=== PATIENT | male | born 1945 | race Caucasian/White ===

== ENCOUNTER → 2023-06-28 13:19 | Outpatient (REF) | payer OTHER, SELFPAY | LOC: DHCBC MAIN 13:19 | PROVIDERS: ATTENDING PHYSICIAN Internal Medicine Cardiovascular Disease; FAMILY PHYSICIAN Internal Medicine | DX: I10 Essential (primary) hypertension (principal); I48.21 Permanent atrial fibrillation; N18.4 Chronic kidney disease, stage 4 (severe); I42.8 Other cardiomyopathies; L03.116 Cellulitis of left lower limb; I35.0 Nonrheumatic aortic (valve) stenosis | CPT/HCPCS: 93306 ==

== ENCOUNTER 2023-09-04 15:46 | Inpatient (IN) | payer OTHER, SELFPAY ==
[2023-09-04 13:49] VITALS: BP 145/104
--- NOTE | 2023-09-04 14:29 | ED.MUSCINJ ---
HPI-Injury
General
Chief Complaint: Fall
Source: patient
Exam Limitations: none
Time Seen by Provider: 09/04/23 14:19
Nursing documentation reviewed up to this point in time: agreed with
History of Present Illness-Injury
Is this injury a work related problem?: No
Is pt an associate of [facility]?: No
Initial Injury comments:
Patient states he was trying to prevent salt shaker from falling and he fell out of his wheelchair. Denies hitting his head. COmplains of pain to left hip. Injury occurred just [employer]
Past History
Past History
ED Past Medical History: Arrthythmia (Atrial fib), CHF, CVA, HTN, Hypercholesterolemia, Renal failure (Dialysis T-Th- S), Seizures and Other (Difficulty with balance, Neuropathy, Paresthesia arms and legs, Sleep apnea, Diverticulosis Cellulitis,
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
ED Past Surgical History: Cardiac (Cardioversion X 2), Orthopedic (C2-C3 surgery, Left leg BKA), Tonsilectomy and Other (Cataracts extracted in 2011, ocular muscle detachment 2016, nasal polypectomy, deviated septum repair 1987, thyroid biopsy)
Patient has exhibited threatening behavior?: No
PSI?: No
Social History
Tobacco: Former smoker
Alcohol: None
Drug: None
Personal:
Living: with family
Employment: Retired
Family History
Family History: Other (reviewed and noncontributory)
Review of Systems
Review of Systems
Allergies reviewed?: Yes
All Other Systems: ROS reviewed and negative except as documented in HPI and ROS
Constitutional: Reports no symptoms
EENT: Reports no symptoms
Respiratory: Reports no symptoms
Cardiac: Reports no symptoms
ABD/GI: Reports no symptoms
: Reports no symptoms
Musculoskeletal: Reports joint pain (pain to left hip)
Skin: Reports no symptoms
Neurological: Reports no symptoms
Psychiatric: Reports no symptoms
Musculoskeletal Injury Exam
Musculoskeletal Injury Exam
Left Hip:
Pain with Movement?: Moderate
Tender to palpation?: Moderate
Soft tissue swelling?: None
External deformity and angulation?: None
Joint effusion?: None
Contusion?: Moderate
Hematoma-local bleeding into tissue?: None
Strain- Sprain- Tear (Connective tissue injury)?: Moderate
Crepitus with movement?: No
Joint instability?: No
Malalignment/deformity?: No
Range of motion: Limited
Distal skin color and temperature: normal-warm & good color
Capillary Refill: normal
Normal distal neurovascular exam?: Yes
Phy Exam
General Physical Exam
General Presentation: well appearing and mild distress
General age: appears stated age
General Skin: warm and dry
General Habitus: normal
Cardiovascular Exam
Cardiovascular Exam: regular rate/rhythm and systolic murmur
Pulmonary Exam
Pulmonary Exam: lungs clear and no respiratory distress
Gastrointestinal Exam
Gastrointestinal Exam: non tender and soft
Musculoskeletal Exam
Musculoskeletal Exam: neuro vasc intact and other (LBKA)
Skin Exam
Skin Exam: normal color
Psychiatric Exam
Psychiatric Exam: normal mood/affect
Injury Course
Orders/Labs/Results
Orders:
Orders
09/04/23 13:52
Hip, Left 2-3 Views [CR Hip - LT w/wo Pel 2-3 Vw*] Urgent
Comment:
Reason For Exam: fall
Include a pelvis x-ray?: Yes
09/04/23 14:39
Type+Screen Urgent
Complete Blood Count/With Diff Urgent
Comprehensive Metabolic Panel Urgent
PTT Urgent
Prothrombin Time Urgent
09/04/23 14:41
Lower Ext Left wo Contrast CT [CT Lower Ext W/o Iv Cont Lt] Urgent
Comment:
Reason For Exam: attn left hip. left hip fx, ortho request
09/04/23 15:19
Admit/Transfer Patient As Directed
Co-Sign Provider:
Level of Care: Inpatient admission
Assign to:: Medical/Surgical
Physician / Group: Hospitalist
Diagnosis: Left hip fracture
Reason for Hospitalization: .
Expected length of stay greater than two midnights?: Yes
ELOS- Estimated Length of Stay in days: 3
I certify the patient meets the requirements for IP care: Yes
Abnormal Lab Results
09/04/23
14:39
RBC 3.18 L 10^6/uL
(4.70-6.10)
Hgb 10.5 L g/dL
(13.0-18.0)
Hct 30.6 L %
(39.0-52.0)
MCV 96.2 H fL
(80.0-94.0)
MCH 33.0 H pg
(27.0-31.0)
RDW 19.3 H %
(11.5-14.5)
Absolute Lymphs (auto) 1.1 L 10^3/uL
(1.2-3.4)
Lymphocytes % 13.7 L %
(20.5-51.1)
PT 29.9 H Sec
(11.4-14.6)
APTT 41.2 H Sec
(23.4-35.0)
Potassium 5.4 H mmol/L
(3.5-5.1)
Chloride 95 L mmol/L
(98-107)
Carbon Dioxide 32 H mmol/L
(22-30)
BUN 49 H mg/dl
(9-20)
Creatinine 7.2 H* mg/dL
(0.7-1.3)
Glucose 101 H mg/dl
(70-99)
09/04/23 14:39
09/04/23 14:39
*Radiology
Radiology exam reviewed: radiology read reviewed
*Critical Care Note
Total Time (30-74mins, 75-104mins- exclusive of procedures): Not Applicable
Update Note
Update Note:
Left hip fracture s/p fall today at home. Denies hitting his head. Left BKA 2025. CKD, on dialyisis M, W, Tue. Hx CVA, epilepsy (last seizure 15yrs ago). Will admit to hospitalist. Dr. Davila consulted. Plan for OR tuesday.
Requests CT LLE - order placed.
ED Attending Note
-
Portions of this chart may have been created with voice recognition software.� Occasional wrong word or��sound alike� substitutions may have occurred due to the inherent limitations of voice recognition software.
Discharge Plan
Departure
Patient Disposition: Admit
Date of Disposition: 09/04/23
Time of Disposition: 14:32
Presentation/result/management discussed w/ accepting MD/DO: Hospitalist
Condition: Fair
Covid-19: Not Applicable
Discharge Problem:
Closed left hip fracture
Interventions
Interventions:
*Risk Screen - Suicide Last Done: 09/04/23 14:28
*General Assessment Last Done: 09/04/23 14:28
*Neglect/Abuse Screening Last Done: 09/04/23 14:28
ED- Fall Risk Assessment Last Done: 09/04/23 14:28
*ED COVID-19 Vaccine History Last Done: 09/04/23 14:28
*Nursing Disposition Last Done: 09/04/23 16:18
ED-Musculoskeletal Assessment Last Done: 09/04/23 14:28
ED- Neurological Assessment Last Done: 09/04/23 14:28
ED-Skin Assessment Last Done: 09/04/23 14:28
[2023-09-04 14:57] LABS: % Basophils 0.8 % (0-2); % Eosinophils 3.4 % (0-6); % Immature Granulocytes 0.4 % (0-0.5); % Lymphocytes 13.7 % (20.5-51.1); % Monocytes 7.4 % (1.7-9.3); % Neutrophils 74.3 % (42.2-75.2); Absolute Basophils 0.1 10^3/uL (0-0.2); Absolute Eosinophils 0.3 10^3/uL (0-0.7); Absolute Lymphocytes 1.1 10^3/uL (1.2-3.4); Absolute Monocytes 0.6 10^3/uL (0.1-0.6); Absolute Neutrophils 5.9 10^3/uL (1.4-6.5); Hematocrit 30.6 % (39.0-52.0); Hemoglobin 10.5 g/dL (13.0-18.0); Mean Corp Hgb Conc. 34.3 g/dL (33.0-37.0); Mean Corpuscular Volume 96.2 fL (80.0-94.0); Mean Platelet Volume 8.5 fL (7.4-10.4); Nucleated Red Blood Cells % 0 % (-); Platelet Count 170 10^3/uL (130-400); Red Blood Cell Count 3.18 10^6/uL (4.70-6.10); Red Cell Dist. Width 19.3 % (11.5-14.5)
[2023-09-04 15:05] LABS: ALT (SGPT) 20 U/L (0-50); AST (SGOT) 25 U/L (17-59); Albumin 4.5 g/dl (3.5-5.0); Alkaline Phosphatase 90 U/L (38-126); Blood Urea Nitrogen 49 mg/dl (9-20); Calcium 9.4 mg/dl (8.4-10.2); Carbon Dioxide 32 mmol/L (22-30); Chloride 95 mmol/L (98-107); Glucose 101 mg/dl (70-99); Potassium 5.4 mmol/L (3.5-5.1); Sodium 137 mmol/L (135-145); Total Bilirubin 0.8 mg/dl (0.2-1.3); Total Protein 6.9 g/dl (6.3-8.2); eGFR 7.21
[2023-09-04 15:11] LABS: INR 2.85; PT 29.9 Sec (11.4-14.6)
[2023-09-04 15:12] LABS: APTT 41.2 Sec (23.4-35.0)
--- NOTE | 2023-09-04 15:19 | HPS.HSE ---
Family Physician
-
Family Physician: Romelia Zapata
Chief Complaint
-
Fall at home with left groin pain
History of Present Illness
77 years old male who was at home when he tried to reach for an object fell off his wheelchair. He sustained left groin pain. In the ER, he had left hip proximal femur/neck fracture. Patient takes Coumadin. ER doctor contacted orthopedic doctor
on-call and requested scan of the pelvic area with holding of Coumadin for anticipated surgery.
was present in the room, no history of head trauma or loss of consciousness.
Medical History
Past Medical History
Past Medical History: Reports Other (End-stage renal disease on dialysis, chronic atrial fibrillation, heart failure with reduced ejection fraction, hypertension, severe aortic stenosis, moderate pulmonary hypertension, peripheral arterial disease,
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
Past Surgical History: Reports Other (No recent major surgery)
Social History
Tobacco: Non-smoker
Alcohol: None
Drug: None
Personal:
Living: With Family
Employment: Retired
Family History
Family History: Not pertinent
Allergies / Home Medications
Allergies reflects when Allergies were last updated in [employer].
Home Medications with original date entered in [employer]
Allergy/Medication List:
Allergies
Allergy/AdvReac Type Severity Reaction Status Date / Time
No Known Allergies Allergy Verified 09/04/23 13:47
Home Medications
ascorbic acid (vitamin C) 250 mg tablet 500 mg PO DAILY Supplement 07/14/21
vit B complx, C-iron 8 mg-folic acid 800 mcg-D3 1,000 unit-zinc tablet (ProRenal) 1 tab PO DAILY Supplement ##0 07/14/21
lamotrigine 150 mg tablet (Lamictal) 300 mg PO BID Seizures 11/11/22
melatonin 3 mg tablet 3 mg PO HSPRN PRN sleep 11/11/22
midodrine 5 mg tablet 5 mg PO DAILY low bp 11/11/22
warfarin 4 mg tablet (Jantoven) 12 mg PO SUMOTUWETHSA@1800 Blood Clot Prevention/Tx 11/11/22
Xphorah 30 mg PO .[id number] 09/04/23
atorvastatin 10 mg tablet 10 mg PO HS 09/04/23
cholecalciferol (vitamin D3) 10 mcg (400 unit) tablet 10 mcg PO DAILYPRN PRN winter only 09/04/23
docusate sodium 100 mg capsule 100 mg PO MEALS 09/04/23
doxycycline monohydrate 100 mg tablet 100 mg PO HS 09/04/23
metoprolol succinate 25 mg tablet,extended release 24 hr 25 mg PO DAILY@1600 09/04/23
pramipexole 0.5 mg tablet 0.5 mg PO HSPRN PRN restless legs 09/04/23
warfarin 4 mg tablet 16 mg PO FR@1800 09/04/23
Review of Systems
-
History Source: Patient
A 12 point ROS was completed and negative except as noted: Yes
Constitutional: Denies Fever
EENT: Denies Sore Throat
Respiratory: Denies Cough
Cardiac: Denies Chest Pain
Abdomen/GI: Denies Abdominal Pain
: Denies Bleeding
Musculoskeletal: Reports Joint Pain (Left groin area)
Skin: Denies Rash
Neurological: Denies Headache
Endocrine: Denies Polyuria
Psych: Denies Panic Disorder
Physical Exam
Vital Signs
Vital Signs
Temp Pulse Resp BP Pulse Ox
97.9 F 66 16 145/104 98
09/04/23 13:49 09/04/23 13:49 09/04/23 13:49 09/04/23 13:49 09/04/23 13:49
Physical Exam
General: Comfortable and Appears Chronically Ill
HEENT: Moist mucous membranes and Atraumatic
Respiratory: Decreased Breath Sounds
Cardiac: S1/S2 and Murmur
GI: Soft and Non Tender
Rectal: No Maroon Stools
Genito-urinary: No costovertebral tender
Musculoskeletal: No Cyanosis and Other ( Below-knee amputation of left lower extremity)
Skin: No Jaundice
Neuro: Oriented; No Slurred Speech, Facial Droop or Tremors
Psych: Calm and Intact Judgment/Insight
Laboratory Results
-
09/04/23 14:39
09/04/23 14:39
Laboratory Results
PT 29.9 Sec (11.4-14.6) H 09/04/23 14:39
INR 2.85 09/04/23 14:39
APTT 41.2 Sec (23.4-35.0) H 09/04/23 14:39
Total Bilirubin 0.8 mg/dl (0.2-1.3) 09/04/23 14:39
AST 25 U/L (17-59) 09/04/23 14:39
ALT 20 U/L (0-50) 09/04/23 14:39
Alkaline Phosphatase 90 U/L (38-126) 09/04/23 14:39
Impression/Plan
-
77 years old male had a fall at home and sustained left Femur fracture
# Subtle minimally impacted fracture, neck, proximal left femur.
History of fall. No head trauma or loss of consciousness
Admit the patient to the hospital
Pain control with Tylenol
Follow-up with results of pelvic scan
DVT prophylaxis post surgery
Holding Coumadin for surgery
Appreciate orthopedic input
# Preoperative evaluation
Patient has multiple risk factors with Heart disease, peripheral arterial disease and renal failure
No history of reaction to anesthetics before
Last echocardiogram in June 2023 showed LVEF 60 to 65%, severe aortic stenosis.
Patient denied chest pain or angina symptoms. Currently not in acute failure.
Patient has history of permanent atrial fibrillation. Will get an EKG
Consult cardiology
Patient is ambulatory with his left lower prosthetic. Uses wheelchair at times.
No prohibitive indication to surgery. Benefits outweigh risks
Will follow
# History of Osteomyelitis involving the spinous process of C5.
c/w suppressive TX with doxycycline
# Hyperkalemia
Will treat with Lokelma. Dialysis in a.m.
#Hypotension after dialysis
- prn Midodrine
- On metoprolol
#End-stage renal disease on hemodialysis Tuesday, , Tuesday
Hyponatremia
History of orthostatic hypotension
- Continue midodrine
#Permanent atrial fibrillation. Patient is on Coumadin.
Primary teleprinter Dr. Castro
Might be an option to pursue Eliquis after surgery.
Chronic HFrEF
- EF of 45 to 50% although was lower previously
#Severe aortic stenosis
#Moderate pulmonary hypertension
Not on home oxygen.
#Peripheral artery disease status post left BKA
#History of CVA
Discussed with about memory and cognitive function. Patient is forgetful to details about time. Tends to be anxious about his medications and doses. His memory impairment more on Sundays before resuming dialysis on Mondays.
#Essential hypertension
Currently, suffers from hypertension and use midodrine at home
#Sleep apnea
#Hyperlipidemia
- Continue statin
#Anemia of chronic disease
#Seizure disorder
- Continue Lamictal
#Restless leg syndrome
- Continue pramipexole
#Neuropathy
#Gout
Not on specific TX
# code status: full code.
Total time spent to see the patient on the floor, examine the patient, review data and lab results, discuss treatment plan with patient, , ER doctor, nursing staff around 75 minutes
[2023-09-04 17:29] VITALS: BP 121/72
[2023-09-04] MEDS: LOKELMA 10 GRAM PO (17:44)
[2023-09-04] MEDS: DILAUDID 0.5 MG IV ×2 (17:49→21:30)
[2023-09-04 17:59] VITALS: BMI 24.8
--- NOTE | 2023-09-04 18:10 | CON.CAR ---
Consultation
Consultation Request
Date/Time Consultation Requested: -September 04, 2023 5 PM
Date/Time Consultation Performed: September 04, 2023 6 PM
Requesting Provider: Dr. De La Cruz
Performing Provider: Chas Moyer
Reason for Consultation: preop CV risk
Medical History
-
Chief Complaint: hip fracture
History of Present Illness:
77-year-old male with history of nonischemic cardiomyopathy and heart failure with recovered ejection fraction, severe , moderate pulmonary hypertension, PAD status post left BKA, hyperlipidemia, chronic atrial fibrillation on warfarin, end-stage
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 He did not have any head trauma or loss of consciousness. He was found to have a left hip proximal femur/neck fracture. He follows with Dr. Castro for his
cardiovascular disease. We are asked to comment on his preop cardiovascular risk assessment. Clint tells me that despite his amputation he is able to walk a flight of stairs with his prosthetic using the handrail. He has no significant chest
discomfort with this. Additionally, he does not appear to be very symptomatic with his severe . He is able to ambulate, however limited, with his prosthetic. I discussed with him that he is certainly not a low risk candidate and is at a
moderate risk for surgery. However, given this need for surgery he is not at prohibitive risk.
Past Medical History
Past Medical History: Arrhythmias (permanent atrial fibrillation), CHF, CVA, GERD, HTN, Renal Failure (ESRD on HD), Seizures, Valvular Disease (aortic stenosis) and Other (left renal mass)
Past Surgical History: Orthopedic
Social History
Tobacco: Former Smoker
Alcohol: None
Drug: None
Personal:
Living: With Family
Employment: Retired
Family History
Family History: Reviewed & Not Pertinent
Allergies / Home Medications
Allergy/AdvReac Type Severity Reaction Status Date / Time
No Known Allergies Allergy Verified 09/04/23 13:47
�Medication �Instructions �Recorded �Confirmed �Type
ascorbic acid (vitamin C) 250 mg 500 mg PO DAILY Supplement 07/14/21 09/04/23 History
tablet
vit B complx, C-iron 8 mg-folic 1 tab PO DAILY Supplement ##0 07/14/21 09/04/23 History
acid 800 mcg-D3 1,000 unit-zinc
tablet (ProRenal)
lamotrigine 150 mg tablet 300 mg PO BID Seizures 11/11/22 09/04/23 History
(Lamictal)
melatonin 3 mg tablet 3 mg PO HSPRN PRN sleep 11/11/22 09/04/23 History
midodrine 5 mg tablet 5 mg PO DAILY low bp 11/11/22 09/04/23 History
warfarin 4 mg tablet (Jantoven) 12 mg PO SUMOTUWETHSA@1800 Blood 11/11/22 09/04/23 History
Clot Prevention/Tx
Xphorah 30 mg PO .[id number] Kidney Disease 09/04/23 09/04/23 History
atorvastatin 10 mg tablet 10 mg PO HS High Cholesterol 09/04/23 09/04/23 History
cholecalciferol (vitamin D3) 10 10 mcg PO DAILYPRN PRN winter only 09/04/23 09/04/23 History
mcg (400 unit) tablet
docusate sodium 100 mg capsule 100 mg PO MEALS Constipation 09/04/23 09/04/23 History
doxycycline monohydrate 100 mg 100 mg PO HS Infection 09/04/23 09/04/23 History
tablet
metoprolol succinate 25 mg 25 mg PO DAILY@1600 Blood Pressure 09/04/23 09/04/23 History
tablet,extended release 24 hr
pramipexole 0.5 mg tablet 0.5 mg PO HSPRN PRN restless legs 09/04/23 09/04/23 History
warfarin 4 mg tablet 16 mg PO FR@1800 Blood Clot 09/04/23 09/04/23 History
Prevention/Tx
Physical Exam
Vital Signs
Temp Pulse Resp BP Pulse Ox
98.4 F 74 16 121/72 94
09/04/23 17:29 09/04/23 17:29 09/04/23 17:29 09/04/23 17:29 09/04/23 17:29
Lab Results
09/04/23 14:39
09/04/23 14:39
Physical Exam
General: Well Developed and No Apparent Distress
HEENT: Normocephalic and Anicteric
Respiratory: Clear and Non Labored Respirations
Cardiac: Irregular Rhythm and Murmur
GI: Soft
Skin: Warm and Dry
Neuro: AO x 3
Psych: Calm
Impression / Plan
-
77-year-old male with history of nonischemic cardiomyopathy and heart failure with recovered ejection fraction, severe , moderate pulmonary hypertension, PAD status post left BKA, hyperlipidemia, chronic atrial fibrillation on warfarin, end-stage
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 He was found to have a left hip proximal femur/neck fracture. He follows with Dr. Castro for his cardiovascular disease. We are asked to comment on his
preop cardiovascular risk assessment.
Preop CV risk assessment
-He has no new symptoms of ischemia, heart failure, or other arrhythmia. He tells me he is able to walk a flight of stairs with his prosthetic without any significant symptoms. According to the NSQIP risk calculator he is at approximately 2.3%
risk of cardiac complication and approximately 15% risk of any complication. He is at least a moderate risk candidate given his significant aortic stenosis, however, is not a prohibitive risk. His most recent echocardiogram actually showed
improvement and normalization in overall LVEF from June 2023. He will need postop monitoring and resumption of warfarin or discussion of Eliquis when able from an orthopedic perspective.
- heparin gtt once subtherapeutic INR given history of CVA
HFrecoveredEF
- cont metop succ intolerant to other GDMT given hypotension and ESRD
permanent AF on warafarin
- hold warfarin given therapeutic INR
- discuss Eliquis after surgery
ESRD
- on HD nephro following
moderate pulm HTN
- improved on last echo and normalized
PAD
- cont statin
Severe
CVA
anemia of chronic disease
seizure disorder
RLS
GOUT
TTE: CONCLUSIONS
Normal left ventricular size and systolic function without regional wall motion
abnormality.
Mildly dilated right ventricle with normal systolic function.
Severe aortic stenosis. Mild aortic regurgitation.
Compared to previous echo 06/16/22, the pulmonary pressure has decreased, the
remaining findings are similar.
Data Reviewed
-
EKG: Tracing Personally Visualized and interpreted
MRI: Report Reviewed by me
Medical Tests (Nuc Med, Echo etc): Report Reviewed by me
Labs: Labs Reviewed by me
--- NOTE | 2023-09-04 18:20 | PTCARENOTE ---
recieved pt from ED via stretcher helped to pull in bed, at bedside, pt in pain 8/10 left groin, medicated as ordered. oriented to his room, call ramos withoin reach.
[2023-09-04] MEDS: TOPROL XL PO (18:35)
[2023-09-04] MEDS: COLACE PO (18:35)
--- NOTE | 2023-09-04 19:35 | W.CON.NEPH ---
Consultation
-
Date/Time Consultation Requested: September 04, 2023 5 PM
Date/Time Consultation Performed: September 04, 2023 7 PM
Requesting Provider: Dr. De La Cruz
Performing Provider: Dr. Salcedo
Reason for Consultation: ESRD
Medical History
-
Chief Complaint: Fall
History of Present Illness:
This is a 77-year-old gentleman who is well-known to us for his end-stage renal disease on hemodialysis Wednesdays at [facility]. He has chronic hypotension on midodrine therapy. He also has atrial fibrillation on Coumadin
therapy for anticoagulation. He has had cervical osteomyelitis with surgical procedures and now on suppressive doxycycline therapy. He also has severe aortic stenosis though this has been stable for him. He states that at home he had seen a
saltshaker which appeared to be out of place. He tried to slide it back to its original position but saw that it was going to fall off the counter and try to reach for it and subsequently fell out of his wheelchair. He sustained left hip pain and
was brought to emergency room. CT scan shows a left hip fracture. He received dialysis Tuesday without complication.
Past Medical History
1. End-stage renal disease.
2. Anemia of chronic kidney disease.
3. Left ankle and hip trauma.
4. Paroxysmal AFib.
5. Seizure disorder.
6. History of stroke.
7. History of left renal mass.
8. Restless leg syndrome.
9. Left radiocephalic AV fistula.
10.Cardiomyopathy
11.Chronic hypotension on midodrine support.
12.Valvular heart disease with associated severe
13.Previous cervical neck surgery with hardware placement, osteomyelitis
Social History
Tobacco: Non-Smoker
Alcohol: None
Family History
Family History: Not Pertinent
Allergies / Home Medications
Allergy/AdvReac Type Severity Reaction Status Date / Time
No Known Allergies Allergy Verified 09/04/23 13:47
�Medication �Instructions �Recorded �Confirmed �Type
ascorbic acid (vitamin C) 250 mg 500 mg PO DAILY Supplement 07/14/21 09/04/23 History
tablet
vit B complx, C-iron 8 mg-folic 1 tab PO DAILY Supplement ##0 07/14/21 09/04/23 History
acid 800 mcg-D3 1,000 unit-zinc
tablet (ProRenal)
lamotrigine 150 mg tablet 300 mg PO BID Seizures 11/11/22 09/04/23 History
(Lamictal)
melatonin 3 mg tablet 3 mg PO HSPRN PRN sleep 11/11/22 09/04/23 History
midodrine 5 mg tablet 5 mg PO DAILY low bp 11/11/22 09/04/23 History
warfarin 4 mg tablet (Jantoven) 12 mg PO SUMOTUWETHSA@1800 Blood 11/11/22 09/04/23 History
Clot Prevention/Tx
Xphorah 30 mg PO .[id number] Kidney Disease 09/04/23 09/04/23 History
atorvastatin 10 mg tablet 10 mg PO HS High Cholesterol 09/04/23 09/04/23 History
cholecalciferol (vitamin D3) 10 10 mcg PO DAILYPRN PRN winter only 09/04/23 09/04/23 History
mcg (400 unit) tablet
docusate sodium 100 mg capsule 100 mg PO MEALS Constipation 09/04/23 09/04/23 History
doxycycline monohydrate 100 mg 100 mg PO HS Infection 09/04/23 09/04/23 History
tablet
metoprolol succinate 25 mg 25 mg PO DAILY@1600 Blood Pressure 09/04/23 09/04/23 History
tablet,extended release 24 hr
pramipexole 0.5 mg tablet 0.5 mg PO HSPRN PRN restless legs 09/04/23 09/04/23 History
warfarin 4 mg tablet 16 mg PO FR@1800 Blood Clot 09/04/23 09/04/23 History
Prevention/Tx
Review of Systems
-
Left hip pain.
All other systems: Negative unless noted
Physical Exam
Vital Signs
Vital Signs
Temp Pulse Resp BP Pulse Ox
98.4 F 74 16 121/72 94
09/04/23 17:29 09/04/23 17:29 09/04/23 17:29 09/04/23 17:29 09/04/23 17:29
Lab Results
WBC 8.0 10^3/uL (4.8-10.8) 09/04/23 14:39
RBC 3.18 10^6/uL (4.70-6.10) L 09/04/23 14:39
Hgb 10.5 g/dL (13.0-18.0) L 09/04/23 14:39
Hct 30.6 % (39.0-52.0) L 09/04/23 14:39
Plt Count 170 10^3/uL (130-400) 09/04/23 14:39
Sodium 137 mmol/L (135-145) 09/04/23 14:39
Potassium 5.4 mmol/L (3.5-5.1) H 09/04/23 14:39
Chloride 95 mmol/L (98-107) L 09/04/23 14:39
Carbon Dioxide 32 mmol/L (22-30) H 09/04/23 14:39
BUN 49 mg/dl (9-20) H 09/04/23 14:39
Creatinine 7.2 mg/dL (0.7-1.3) H* 09/04/23 14:39
eGFR 7.21 09/04/23 14:39
Glucose 101 mg/dl (70-99) H 09/04/23 14:39
Calcium 9.4 mg/dl (8.4-10.2) 09/04/23 14:39
Albumin 4.5 g/dl (3.5-5.0) 09/04/23 14:39
Physical Exam
Patient is awake alert oriented and in no distress. Mood and affect were pleasant, insight and judgment were good. Pupils are equal round and reactive to light, extraocular movements are intact, sclera were anicteric. Hearing was normal, ears and
nose are intact. Oropharynx was clear. Neck was supple with trachea midline and no thyromegaly. Heart was irregular rate and rhythm without rubs. There was a 3/6 systolic murmur lower extremities without edema. Lungs were clear to auscultation
bilaterally and with normal excursion. Abdomen was soft, nontender, with normal active bowel sounds, and no hepatosplenomegaly. Skin was without rash and with normal turgor. AV fistula in the left lower arm was with good thrill and bruit
Data Reviewed
-
CT Scan: Report Reviewed by me (CT of the lower leg on 09/04/2023 shows proximal left femoral fracture)
Medical Tests (Nuc Med, Echo etc): Image Personally Visualized and interpreted (Hip x-ray on September 04, 2023 by my reading shows left proximal femur fracture)
Labs: Labs Reviewed by me (Hemoglobin 10.5, platelet 170, INR 2.85, potassium 5.4, bicarb 32, creatinine 7.2)
Old Records: Reviewed (Echocardiogram on June 28, 2023 shows normal LV function, severe aortic stenosis)
Assessment/Plan
-
Assessment:
ESRD MWF ([facility])
Hx C5 osteomyelitis on suppressive doxycycline
Hypotension (chronic midodrine)
Hyperphosphatemia
Chronic atrial fibrillation
Chronic HFpEF
Severe aortic stenosis
Moderate pulmonary hypertension
Peripheral artery disease status post left BKA
History of CVA
Sleep apnea
Anemia of chronic disease
Seizure disorder
Restless leg syndrome
Neuropathy
Chronic anticoagulation
Left proximal femoral fracture
Plan:
HD tomorrow
Outpatient medications may be continued including midodrine as well as Xphozah if patient can bring this in from home
Possible orthopedic surgery Tuesday
[2023-09-04] MEDS: LAMICTAL 300 MG PO (20:47)
[2023-09-04] MEDS: VIBRAMYCIN 100 MG PO (21:30)
[2023-09-04] MEDS: LIPITOR 10 MG PO (21:30)
[2023-09-04 23:21] VITALS: BP 97/56
[2023-09-04 23:25] VITALS: BP 97/56
[2023-09-04 23:26] VITALS: BP 110/60
[2023-09-05 00:30] VITALS: BMI 24.8
[2023-09-05] MEDS: TYLENOL 1000 MG PO ×3 (04:14→20:31)
[2023-09-05 05:31] VITALS: BMI 24.5
[2023-09-05 06:53] LABS: Hematocrit 28.4 % (39.0-52.0); Hemoglobin 9.5 g/dL (13.0-18.0); Mean Corp Hgb Conc. 33.5 g/dL (33.0-37.0); Mean Corpuscular Hgb 32.6 pg (27.0-31.0); Mean Corpuscular Volume 97.6 fL (80.0-94.0); Mean Platelet Volume 8.8 fL (7.4-10.4); Platelet Count 146 10^3/uL (130-400); Red Blood Cell Count 2.91 10^6/uL (4.70-6.10); Red Cell Dist. Width 19.2 % (11.5-14.5); White Blood Cell Count 6.4 10^3/uL (4.8-10.8)
[2023-09-05 06:58] LABS: INR 3.82; PT 37.7 Sec (11.4-14.6)
[2023-09-05 07:05] VITALS: BP 101/55
[2023-09-05 07:21] LABS: Blood Urea Nitrogen 59 mg/dl (9-20); Calcium 9.4 mg/dl (8.4-10.2); Carbon Dioxide 25 mmol/L (22-30); Chloride 96 mmol/L (98-107); Estimated Creatinine Clearance 7 ml/min; Glucose 102 mg/dl (70-99); Potassium 5.5 mmol/L (3.5-5.1); Sodium 134 mmol/L (135-145); eGFR 6.26
[2023-09-05] MEDS: COLACE 100 MG PO ×3 (08:15→18:01)
[2023-09-05] MEDS: ProAmatine 5 MG PO (08:16)
--- NOTE | 2023-09-05 09:04 | W.PN.NEPH.HD ---
Assessment
-
Patient seen on dialysis
Systolic blood pressure stable for current UF
Patient notes radiating left groin pain following hip fracture
For surgery tomorrow
Next dialysis will be on Tuesday
Progress Note - Hemodialysis
-
Date of Service: September 05, 2023
Duration: 30 minutes and 3 hours
Potassium Bath: 2
Calcium Bath: 2.5
Opti-Dialyzer: 160
Ultrafiltration: Other (2-2.5kg)
Blood Flow: 400
Dialysate Flow: 600
Heparin: none
EPO: given
--- NOTE | 2023-09-05 09:29 | W.PN.CD ---
Today's Communication / Plan
-
No new recommendations will plan on seeing after surgery
Impression / Plan
-
77-year-old male with history of nonischemic cardiomyopathy and heart failure with recovered ejection fraction, severe , moderate pulmonary hypertension, PAD status post left BKA, hyperlipidemia, chronic atrial fibrillation on warfarin, end-stage
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 He was found to have a left hip proximal femur/neck fracture. He follows with Dr. Castro for his cardiovascular disease. We are asked to comment on his
preop cardiovascular risk assessment.
Preop CV risk assessment
-He has no new symptoms of ischemia, heart failure, or other arrhythmia. He tells me he is able to walk a flight of stairs with his prosthetic without any significant symptoms. According to the NSQIP risk calculator he is at approximately 2.3%
risk of cardiac complication and approximately 15% risk of any complication. He is at least a moderate risk candidate given his significant aortic stenosis, however, is not a prohibitive risk. His most recent echocardiogram actually showed
improvement and normalization in overall LVEF from June 2023. He will need postop monitoring and resumption of warfarin or discussion of Eliquis when able from an orthopedic perspective.
- heparin gtt once subtherapeutic INR given history of CVA
HFrecoveredEF
- cont metop succ intolerant to other GDMT given hypotension and ESRD
permanent AF on warafarin
- hold warfarin given therapeutic INR
- discuss Eliquis after surgery
ESRD
- on HD nephro following
moderate pulm HTN
- improved on last echo and normalized
PAD
- cont statin
Severe
CVA
anemia of chronic disease
seizure disorder
RLS
GOUT
TTE: CONCLUSIONS
Normal left ventricular size and systolic function without regional wall motion
abnormality.
Mildly dilated right ventricle with normal systolic function.
Severe aortic stenosis. Mild aortic regurgitation.
Compared to previous echo 06/16/22, the pulmonary pressure has decreased, the
remaining findings are similar.
Physical Exam
Vital Signs/Labs
Vital Signs
Temp Pulse Resp BP Pulse Ox
98.5 F 62 16 101/55 94
09/05/23 07:05 09/05/23 08:16 09/05/23 07:05 09/05/23 08:16 09/05/23 07:05
09/04/23 09/05/23 09/06/23
06:59 06:59 06:59
Actual Weight 160 lb 12.8 oz
09/05/23 05:57
09/05/23 05:57
PT 37.7 Sec (11.4-14.6) H 09/05/23 05:57
INR 3.82 09/05/23 05:57
APTT 41.2 Sec (23.4-35.0) H 09/04/23 14:39
Physical Exam
Constitutional: No acute distress
EENT: Anicteric
Cardiovascular: Pedal edema is absent and Rhythm/rate is irregular
Respiratory: Respiratory effort normal and Lungs clear to auscul.
GI: Soft
Neuro/Psych: AO x 3
Data Reviewed
-
Date of Service: September 05, 2023
Echo: Report Reviewed by me
Labs: Labs Reviewed by me
[2023-09-05] MEDS: LAMICTAL 300 MG PO ×2 (09:43→20:29)
[2023-09-05] MEDS: MANNITOL 25% 12.5 GRAMS IV ×2 (10:00→12:35)
[2023-09-05] MEDS: FLEXBUMIN 25% FOR HEMODIALYSIS 12.5 GRAMS IV ×2 (10:05→12:40)
--- NOTE | 2023-09-05 10:26 | CON.ORTHO ---
Consultation
-
Date/Time Consultation Requested: August 28/1721
Date/Time Consultation Performed: September 27/0840
Requesting Provider: Jono
Performing Provider: Emily charles Lola
Reason for Consultation: Left Hip Fx
Consultation - Orthopedics
History
Dictation#[id number]
Asked to see this pleasant 77 y/o white male with PMH Atrial fib (On Coumadin currently being held), CHF, CVA, HTN, Hypercholesterolemia, Renal failure (Dialysis T--), Seizures, Difficulty with balance, Neuropathy, Paresthesia arms and legs,
Sleep apnea, Diverticulosis Cellulitis, restless leg after dialysis, Gout, Hx Left BKA, who presented to the ER after a mechanical fall out of his wheelchair in the kitchen yesterday while reaching for an object. He denies a prodrome, LOC, or
head strike. Given his significant underlying medical comorbidities he has been admitted to the hospitalist service with consultation placed to us with regards to a nondisplaced LEFT femoral neck fracture noted on x-rays and correlating CT scan
Allergies / Home Medications
Allergy/AdvReac Type Severity Reaction Status Date / Time
No Known Allergies Allergy Verified 09/04/23 13:47
�Medication �Instructions �Recorded
ascorbic acid (vitamin C) 250 mg 500 mg PO DAILY Supplement 07/14/21
tablet
vit B complx, C-iron 8 mg-folic 1 tab PO DAILY Supplement ##0 07/14/21
acid 800 mcg-D3 1,000 unit-zinc
tablet (ProRenal)
lamotrigine 150 mg tablet 300 mg PO BID Seizures 11/11/22
(Lamictal)
melatonin 3 mg tablet 3 mg PO HSPRN PRN sleep 11/11/22
midodrine 5 mg tablet 5 mg PO DAILY low bp 11/11/22
warfarin 4 mg tablet (Jantoven) 12 mg PO SUMOTUWETHSA@1800 Blood 11/11/22
Clot Prevention/Tx
Xphorah 30 mg PO .[id number] Kidney Disease 09/04/23
atorvastatin 10 mg tablet 10 mg PO HS High Cholesterol 09/04/23
cholecalciferol (vitamin D3) 10 10 mcg PO DAILYPRN PRN winter only 09/04/23
mcg (400 unit) tablet
docusate sodium 100 mg capsule 100 mg PO MEALS Constipation 09/04/23
doxycycline monohydrate 100 mg 100 mg PO HS Infection 09/04/23
tablet
metoprolol succinate 25 mg 25 mg PO DAILY@1600 Blood Pressure 09/04/23
tablet,extended release 24 hr
pramipexole 0.5 mg tablet 0.5 mg PO HSPRN PRN restless legs 09/04/23
warfarin 4 mg tablet 16 mg PO FR@1800 Blood Clot 09/04/23
Prevention/Tx
Vital Signs / Lab Results
Temp Pulse Resp BP Pulse Ox
98.5 F 62 16 101/55 94
09/05/23 07:05 09/05/23 08:16 09/05/23 07:05 09/05/23 08:16 09/05/23 07:05
09/05/23 05:57
09/05/23 05:57
Assessment / Plan
PE: Afeb. Bedrest. Left hip skin intact. No open wounds. Mild amount of edema. No ecchymosis. Generalized pain to palpation of the left hip. Positive logroll for left hip pain. Deferred range of motion due to known, nondisplaced fracture.
BKA noted. DNVI at the left knee
INR: 3.82 (September 27)- repeat pending 1500 today
Diagnostics: Xray and correlating CT revealing nondisplaced left femoral neck fracture
Impression: Nondisplaced LEFT femoral neck fracture
Plan: I had an at length discussion with the patient bedside. He is in full understanding to the nature of his left hip fracture. I discussed nonsurgical and surgical management and the RBAs of each approach. he is quite uncomfortable with any
movement. After discussing at length he has accepted all the proposed risks of surgery and wishes to proceed. unfortunately his INR is 3.82. Coumadin currently being held. He was getting ready to start dialysis at the time of consultation.
Hopefully this will help get his INR down below 2.0, which is where we want it to proceed with surgery. repeat INR pending postdialysis. he has been tentatively posted to the OR schedule for tomorrow under the direction of Dr. Davila for a
percutaneous screw fixation of his nondisplaced LEFT hip fracture. I briefly discussed the postop and rehab course with him as well. He is mainly confined to a wheelchair, but this should definitely help with pain control. Continue treatment per
the primary team. we briefly discussed the postop and rehab course as well, and will appreciate assistance with disposition. surgical and blood consents have been signed and placed on the patient's chart. Operative site has been marked as the
LEFT hip. patient has been made NPO pMN tonite. Pre-op ABX have been ordered. T&S has already been completed. anticipating his INR below 2.0 we will look to proceed with surgical fixation of his LEFT hip tomorrow AM under the direction of Dr. Lola (~)
[2023-09-05] MEDS: RETACRIT 6000 UNITS IV (10:49)
--- NOTE | 2023-09-05 14:37 | CM ---
Addendum entered by Stephen Jones 09/05/23 14:58:
Awaiting INR to 2.0 prior to surgical intervention. Anticipate Tuesday09/06/23.
Original Note:
Fx. L hip. Initial assessment completed with patient and who live in a lower level walk out in a 3 story home with 9 steps to enter in front and 13 steps in back with ramp and stair lift. Patient and live in home with daughter, S-I-L
and grandchildren. Patient has a LLE prosthesis. DME in home is 2 W/CH, 2 SPC, 2 RW, SC, RTS, Grab bars in BR at shower and toilet. Patient uses W/CH and SPC. 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 No history of Psychiatric hospitalizations. Patient is on
outpatient HD since May 2021. He goes to [facility] on with chair time at 11:30am. Pharmacy is [facility] in [place] and [facility] is [facility]. Discharge Plan of Care: Await Therapy recommendations.
[2023-09-05 15:05] VITALS: BP 101/69
[2023-09-05 15:07] LABS: INR 3.87; PT 38.1 Sec (11.4-14.6)
--- NOTE | 2023-09-05 15:17 | W.PN.HOSP.TC ---
Today's Communication/Plan
-
Hold Coumadin anticipating OR
Vitamin K.
HD as per schedule.
If INR remains elevated on 09/05 may consider FFP while monitoring volume status closely in HD patient.
Assessment / Plan
Assessment / Plan
Impression:
Status post mechanical fall and left hip fracture.
Coagulopathy secondary to Coumadin therapy
Conditions prior to admission:
Heart failure recovered EF.
Permanent atrial fibrillation
Anticoagulation with Coumadin
End-stage renal disease on HD.
Chronic hypotension requiring midodrine
Moderate pulmonary hypertension
PAD with history of a left BKA.
Severe aortic stenosis
History of CVA
Anemia of chronic disease.
Seizure disorder
RLS.
Gout.
Osteomyelitis of a C5 on suppressive doxycycline
Plan:
Subacute minimally impacted fracture of the left proximal femur
Orthopedic input appreciated
Plan is for percutaneous fixation tentatively on 09/05
Hold Coumadin following INR
May require vitamin K to bring INR down.
Cardiovascular.
CHF recovered EF
Permanent atrial fibrillation
PAD
Anticoagulation with Coumadin
Severe aortic stenosis/mild MR
Echocardiogram:Normal left ventricular size and systolic function without regional wall motion
abnormality.
Mildly dilated right ventricle with normal systolic function.
Severe aortic stenosis. Mild aortic regurgitation.
Compared to previous echo 06/16/22, the pulmonary pressure has decreased, the
remaining findings are similar.
Continue metoprolol
Continue midodrine for hypotension
Continue Lipitor.
Stage renal disease
HD as per schedule
Continue midodrine
Seizure disorder on Lamictal
History of spinal osteomyelitis
On doxycycline suppression.
Anticipated Discharge: > 48 hours
Subjective/Interval History
-
Date of Service: September 05, 2023
Objective Data
-
Labs:
Laboratory Results
09/05/23 09/05/23
05:57 14:39
WBC 6.4
Hgb 9.5 L
Hct 28.4 L
Plt Count 146
PT 37.7 H 38.1 H
INR 3.82 3.87
Sodium 134 L
Potassium 5.5 H
Chloride 96 L
Carbon Dioxide 25
BUN 59 H
Creatinine 8.1 H*
Glucose 102 H
Calcium 9.4
Vital Signs:
Vital Signs
Temp Pulse Resp BP Pulse Ox
98.5 F 62 16 101/55 94
09/05/23 07:05 09/05/23 08:16 09/05/23 07:05 09/05/23 08:16 09/05/23 08:00
I&O
09/04/23 09/05/23 09/06/23
06:59 06:59 06:59
Intake Total 480 / 480
Balance 480 / 480
Physical Exam
-
General: Well Developed and No Apparent Distress
HEENT: Normocephalic, Atraumatic and Moist Mucous Membranes
Respiratory: Clear to Auscultation
Cardiac: Regular Rhythm and S1/S2; Negative Murmur, Rub or Gallop
GI: Soft, Nontender, Nondistended and Normal Bowel Sounds; Negative Organomegaly
Rectal: Deferred by Provider
Musculoskeletal: No Clubbing, No Cyanosis and No Edema
Skin: Negative Rash
Neuro: Nonfocal/Grossly Intact
[2023-09-05] MEDS: TOPROL XL 25 MG PO (15:30)
[2023-09-05] MEDS: MEPHYTON 5 MG PO (16:22)
[2023-09-05] MEDS: VIBRAMYCIN 100 MG PO (22:12)
[2023-09-05] MEDS: LIPITOR 10 MG PO (22:12)
[2023-09-05 23:11] VITALS: BP 113/63
[2023-09-05] MEDS: DILAUDID 0.5 MG IV (23:15)
[2023-09-06] VITALS (18 sets, daily range): BP systolic 76–139; BP diastolic 40–88; BMI 24.2
--- NOTE | 2023-09-06 06:33 | W.PN.UPDATE ---
Update Note
Progress Note Update
77M left nondisplaced femoral neck fracture
-tentative for OR w/ Dr. Davila pending INR goal <2
---3.87 on 09/04; 1.71 today; plan to continue for OR today
-NPO
-consent obtained, ABX and irrigation on order
-type and screen on file
[2023-09-06 06:43] LABS: INR 1.71; PT 19.9 Sec (11.4-14.6)
[2023-09-06] MEDS: LAMICTAL 300 MG PO ×2 (08:42→20:08)
[2023-09-06] MEDS: COLACE 100 MG PO ×2 (08:42→17:00)
[2023-09-06] MEDS: ProAmatine 5 MG PO ×2 (08:42→18:31)
[2023-09-06] MEDS: TYLENOL 1000 MG PO ×2 (10:32→18:17)
--- NOTE | 2023-09-06 12:01 | W.PN.NEPH.PH ---
Today's Communication / Plan
-
OR
Assessment/Plan
-
Assessment:
ESRD MWF ([facility])
Hx C5 osteomyelitis on suppressive doxycycline
Hypotension (chronic midodrine)
Hyperphosphatemia
Chronic atrial fibrillation
Chronic HFpEF
Severe aortic stenosis
Moderate pulmonary hypertension
Peripheral artery disease status post left BKA
History of CVA
Sleep apnea
Anemia of chronic disease
Seizure disorder
Restless leg syndrome
Neuropathy
Chronic anticoagulation
Left proximal femoral fracture
Plan:
HD tomorrow
Outpatient medications may be continued including midodrine as well as Xphozah if patient can bring this in from home
for OR hip screws
-
-
Date of Service: September 06, 2023
CC / HPI / ROS
-
Chief Complaint:
ESRD
History of Present Illness:
BP stable
tolerated HD yesterday
pain controlled from hip fx
Review of Systems:
no CP/SOB
Labs
-
Labs:
WBC 6.4 10^3/uL (4.8-10.8) 09/05/23 05:57
RBC 2.91 10^6/uL (4.70-6.10) L 09/05/23 05:57
Hgb 9.5 g/dL (13.0-18.0) L 09/05/23 05:57
Hct 28.4 % (39.0-52.0) L 09/05/23 05:57
Plt Count 146 10^3/uL (130-400) 09/05/23 05:57
Sodium 134 mmol/L (135-145) L 09/05/23 05:57
Potassium 5.5 mmol/L (3.5-5.1) H 09/05/23 05:57
Chloride 96 mmol/L (98-107) L 09/05/23 05:57
Carbon Dioxide 25 mmol/L (22-30) 09/05/23 05:57
BUN 59 mg/dl (9-20) H 09/05/23 05:57
Creatinine 8.1 mg/dL (0.7-1.3) H* 09/05/23 05:57
eGFR 6.26 09/05/23 05:57
Glucose 102 mg/dl (70-99) H 09/05/23 05:57
Calcium 9.4 mg/dl (8.4-10.2) 09/05/23 05:57
Albumin 4.5 g/dl (3.5-5.0) 09/04/23 14:39
Physical Exam
-
Vital Signs:
Vital Signs
Temp Pulse Resp BP Pulse Ox
98.1 F 68 16 114/62 96
09/06/23 07:05 09/06/23 08:42 09/06/23 07:05 09/06/23 08:42 09/06/23 07:05
Cardiovascular:: Regular rate and rhythm
Respiratory:: Bilateral: Coarse
Lung Excursion:: Normal
Abdomen:: Nontender and Soft
Bowel Sounds:: Normal
Extremity Edema:: None: Bilateral:
[2023-09-06] MEDS: SUBLIMAZE 50 MCG IV ×3 (13:54→15:02)
[2023-09-06] MEDS: COLACE PO (14:13)
[2023-09-06] MEDS: NSS 1000 IV (14:14)
--- NOTE | 2023-09-06 15:15 | PTCARENOTE ---
Received patient back from PACU. IVF running at 75cc/hr. Aquacell dressing on left hip with small amount of drainage. SCD on right leg. Patient appears comfortable. is at bedside.
--- NOTE | 2023-09-06 15:51 | CM ---
Patient to OR today for L hip screw. Also has previous L LE amputation. Therapy unable to evaluate today as patient too lethargic after surgery. Will need Discharge Plan of Care after therapy evaluations and recommendations.
[2023-09-06] MEDS: TOPROL XL 25 MG PO (16:59)
[2023-09-06] MEDS: ANCEF 5 IV (18:17)
--- NOTE | 2023-09-06 18:21 | W.PN.HOSP.TC ---
Today's Communication/Plan
-
Status post surgical fixation of the left hip fracture.
Tentatively resume Coumadin in AM.
Physical therapy assessment
HD as per schedule
Assessment / Plan
Assessment / Plan
Impression:
Status post mechanical fall and left hip fracture.
Coagulopathy secondary to Coumadin therapy
Conditions prior to admission:
Heart failure recovered EF.
Permanent atrial fibrillation
Anticoagulation with Coumadin
End-stage renal disease on HD.
Chronic hypotension requiring midodrine
Moderate pulmonary hypertension
PAD with history of a left BKA.
Severe aortic stenosis
History of CVA
Anemia of chronic disease.
Seizure disorder
RLS.
Gout.
Osteomyelitis of a C5 on suppressive doxycycline
Plan:
Subacute minimally impacted fracture of the left proximal femur
Orthopedic input appreciated
Coumadin held and reversed with vitamin K down to INR of 1.7 prior to surgery
Status post percutaneous fixation on 09/05.
Monitor hemoglobin
Plan is to resume Coumadin on 09/06/POD day 1.
Cardiovascular.
CHF recovered EF
Permanent atrial fibrillation
PAD
Anticoagulation with Coumadin
Severe aortic stenosis/mild MR
Echocardiogram:Normal left ventricular size and systolic function without regional wall motion
abnormality.
Mildly dilated right ventricle with normal systolic function.
Severe aortic stenosis. Mild aortic regurgitation.
Compared to previous echo 06/16/22, the pulmonary pressure has decreased, the
remaining findings are similar.
Continue metoprolol
Continue midodrine for hypotension
Continue Lipitor.
Stage renal disease
HD as per schedule
Continue midodrine
Seizure disorder on Lamictal
History of spinal osteomyelitis
On doxycycline suppression.
Anticipated Discharge: 24 - 48 hours
Subjective/Interval History
-
Date of Service: September 06, 2023
Objective Data
-
Labs:
Laboratory Results
09/06/23
06:13
PT 19.9 H
INR 1.71 D
Vital Signs:
Vital Signs
Temp Pulse Resp BP Pulse Ox
97.6 F 76 18 78/40 99
09/06/23 16:37 09/06/23 16:59 09/06/23 16:37 09/06/23 18:15 09/06/23 16:37
I&O
09/05/23 09/06/23 09/07/23
06:59 06:59 06:59
Intake Total 480 / 480 1200 / 1200 100 / 100
Balance 480 / 480 1200 / 1200 100 / 100
Physical Exam
-
General: Well Developed and No Apparent Distress
HEENT: Normocephalic, Atraumatic and Moist Mucous Membranes
Respiratory: Clear to Auscultation
Cardiac: Regular Rhythm and S1/S2; Negative Murmur, Rub or Gallop
GI: Soft, Nontender, Nondistended and Normal Bowel Sounds; Negative Organomegaly
Rectal: Deferred by Provider
Musculoskeletal: No Clubbing, No Cyanosis and No Edema
Skin: Negative Rash
Neuro: Nonfocal/Grossly Intact
[2023-09-06] MEDS: NSS 250 IV (20:08)
--- NOTE | 2023-09-06 20:57 | PTCARENOTE ---
Pt with 78/40 BP. Received 5mg midodrine PO at 1830. Recheck 8750. Repeated manual at 194, 76/48 RUE. Notified CHAIN HOOKER. Ordered 250 ml bolus NS. See May. Recheck after bolus, 82/44 manual RUE. CHAIN HOOKER notified, pt will be transferred to IMU.
--- NOTE | 2023-09-06 20:57 | W.PN.UPDATE ---
Update Note
Progress Note Update
Nurse contacted provider for hypotension. Patient was ordered 1x dose Midodrine 5mg by attending at approximately 1830, 1 hour later patients blood pressure continuing to fall and reported as 76/48 mnually. Patient complaining of associated
lightheadedness. Gave 1x NSS 250mL bolus that was ineffective. Patients repeat blood pressure 70/40 (50).
Orders placed to transfer patient to IMU for closer monitor and Levophed for pressor support.
[2023-09-06] MEDS: LIPITOR 10 MG PO (22:02)
[2023-09-06] MEDS: VIBRAMYCIN 100 MG PO (22:02)
--- NOTE | 2023-09-06 22:45 | PTCARENOTE ---
Report called to JYOTI Nath. 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
[2023-09-07] VITALS (37 sets, daily range): BP systolic 82–155; BP diastolic 42–94; PULSE 67; O2SAT 97; BMI 25.3
--- NOTE | 2023-09-07 00:30 | PTCARENOTE ---
Pt AAOx3, resting comfortably in bed, forgetful at times. Asks this RN how long he needs to refrain from moving LLE. This RN reinforced education on post-surgical hip precautions. IVF running through R AC IV. VAT placed additional IV site in R FA
for this RN to hang levophed gtt, however BPs maintaining >90 systolic with MAPs >65. This RN refrained from hanging gtt at this time, however close monitoring will continue.
[2023-09-07] MEDS: LEVOPHED 250 IV (02:03)
[2023-09-07] MEDS: ANCEF 5 IV (03:01)
[2023-09-07] MEDS: NSS 1000 IV (05:47)
--- NOTE | 2023-09-07 07:40 | W.PN.ORTHO ---
Today's Communication / Plan
-
77-year-old male postop day 1 cannulated screw fixation for left hip fracture
-Protected weightbearing with assist devices as indicated.
-Pain controlled on current regimen. Diet and DVT prophylaxis per primary
-Minimal strikethrough on dressing. Will continue to monitor and possible change tomorrow
Assessment
.
Distal Motor Intact: Yes
Dressing:
Clean, dry and intact.
Plan
.
Surgery / Date: 06 September 2023 left hip cannulated screw fixation
Activity:
Out of bed.
PT/OT
Subjective
.
.:
Patient resting comfortably.
Vital Signs and Labs
.
Vital Signs and Labs:
Temp Pulse Resp BP Pulse Ox
97.7 F 85 21 132/67 94
09/07/23 03:55 09/07/23 06:30 09/07/23 06:30 09/07/23 06:30 09/07/23 06:30
PT 19.9 Sec (11.4-14.6) H 09/06/23 06:13
INR 1.71 D 09/06/23 06:13
[2023-09-07] MEDS: COLACE PO (08:00)
[2023-09-07] MEDS: ProAmatine 5 MG PO ×3 (08:04→18:00)
[2023-09-07] MEDS: LAMICTAL 300 MG PO ×2 (08:05→19:37)
--- NOTE | 2023-09-07 08:10 | PTCARENOTE ---
Patient received from cage shift manager. Patient resting comfortably in bed. AAO, VSS. No events noted overnight. No complaints of pain at this time. IVF and Levo infusion. Will attempt to turn Levo off. HD scheduled for this AM. Call ramos in
reach.
[2023-09-07 08:49] LABS: Hematocrit 27.7 % (39.0-52.0); Hemoglobin 9.1 g/dL (13.0-18.0)
[2023-09-07] MEDS: MANNITOL 25% 12.5 GRAMS IV ×2 (08:50→10:03)
[2023-09-07] MEDS: FLEXBUMIN 25% FOR HEMODIALYSIS 12.5 GRAMS IV ×2 (08:55→10:00)
[2023-09-07] MEDS: RETACRIT 6000 UNITS IV (08:56)
[2023-09-07 09:05] LABS: Carbon Dioxide 23 mmol/L (22-30); Chloride 103 mmol/L (98-107); Potassium 4.6 mmol/L (3.5-5.1); Sodium 138 mmol/L (135-145)
--- NOTE | 2023-09-07 09:15 | W.PN.CD ---
Addendum entered and electronically signed by CRISSY Olivas 09/07/23 13:42:
See below- I reviewed pricing with patient this AM (appreciate case management consult). Patient would like to make his own calls to his pharmacy to check and consider his options regarding Eliquis versus warfarin resumption when it is okay to
resume AC- and he will let medical team know.
Original Note:
Today's Communication / Plan
-
Heparin gtt to coumadin, or start Eliquis when OK from surgical perspective
Will coleman Eliquis for patient with possible transition to Eliquis and not warfarin
Impression / Plan
-
77-year-old male with history of nonischemic cardiomyopathy and heart failure with recovered ejection fraction, severe , moderate pulmonary hypertension, PAD status post left BKA, hyperlipidemia, chronic atrial fibrillation on warfarin, end-stage
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 He was found to have a left hip proximal femur/neck fracture. He follows with Dr. Castro for his cardiovascular disease. We are asked to comment on his
preop cardiovascular risk assessment.
s/p fall and Left hip fx with 1 cannulated screw fixation
HFrecoveredEF
- cont metop succ intolerant to other GDMT given hypotension and ESRD
permanent AF on warafarin
- Heparin gtt to warfarin vs Eliquis for AC will coleman out Eliquis
- discuss Eliquis after surgery
ESRD
- on HD nephro following
moderate pulm HTN
- improved on last echo and normalized
PAD
- cont statin
Severe
CVA
anemia of chronic disease
seizure disorder
RLS
GOUT
TTE: CONCLUSIONS
Normal left ventricular size and systolic function without regional wall motion
abnormality.
Mildly dilated right ventricle with normal systolic function.
Severe aortic stenosis. Mild aortic regurgitation.
Compared to previous echo 06/16/22, the pulmonary pressure has decreased, the
remaining findings are similar.
Physical Exam
Vital Signs/Labs
Vital Signs
Temp Pulse Resp BP Pulse Ox
97.3 F 76 21 132/88 94
09/07/23 07:26 09/07/23 08:04 09/07/23 06:30 09/07/23 08:04 09/07/23 06:30
09/06/23 09/07/23 09/08/23
06:59 06:59 06:59
Actual Weight 159 lb 1.6 oz 166 lb 4.8 oz
09/07/23 07:55
09/07/23 07:55
PT 19.9 Sec (11.4-14.6) H 09/06/23 06:13
INR 1.71 D 09/06/23 06:13
APTT 41.2 Sec (23.4-35.0) H 09/04/23 14:39
Physical Exam
Constitutional: No acute distress
EENT: Anicteric
Cardiovascular: Rhythm/rate is irregular
Respiratory: Respiratory effort normal and Lungs clear to auscul.
GI: Soft
Neuro/Psych: AO x 3
Data Reviewed
-
Date of Service: September 07, 2023
EKG: Tracing Personally Visualized and interpreted (af)
Echo: Report Reviewed by me
Labs: Labs Reviewed by me
--- NOTE | 2023-09-07 09:43 | W.PN.NEPH.HD ---
Assessment
-
Seen on HD. no complaints. VSS, BP low. additional midodrine given. Access ok
to resume anticoagulation
Progress Note - Hemodialysis
-
Date of Service: September 07, 2023
Duration: 30 minutes and 3 hours
Potassium Bath: 2
Calcium Bath: 2.5
Opti-Dialyzer: 160
Ultrafiltration: Other (2kg)
Blood Flow: 400
Dialysate Flow: 600
Heparin: no
EPO: 6000 units
--- NOTE | 2023-09-07 10:50 | PN.CDI ---
CDI
- -
CDI:
Physician Documentation Request
Admit Date: 09/04/23 15:46
Dear Doctor Nicolasa,
ED record states patient feel out of his wheelchair and was complaining of left hip pain.
Patient was found to have left hip fracture.
Left hip xray shows 'some diffuse osteopenia '
Please provide further specificity regarding the diagnosis of fracture:
Etiology
Traumatic
Pathologic due to osteoporosis
Due to a combination of trauma and a pathological process
but the trauma alone would not likely have been sufficient
to cause the fracture
Use of terms such as suspected, likely, concern for, or probable (associated with a specific diagnosis that is being evaluated, monitored, or treated as if it exists) are acceptable and can be coded in the inpatient setting, when documented at the
time of discharge.
Thank you,
Nancy Sneed RN, BSN
CDI Specialist
tiger text
Please use your independent medical judgment in providing your response.
--- NOTE | 2023-09-07 11:17 | CM ---
Asked to check costs of Eliquis 5 mg PO BID.
Per RX plan [phone] costs will be $137/month supply, $396.94/90 day supply.
TT to CRISSY.
[2023-09-07] MEDS: COLACE 100 MG PO ×2 (14:19→18:03)
[2023-09-07 15:47] LABS: Phosphorus 5.3 mg/dl (2.5-4.5)
--- NOTE | 2023-09-07 16:31 | CM ---
Patient seen bedside with spouse in room.
PT/OT recommending home with HC.
discussed options.
Patient lives in [place], had [facility] in the past.
referral placed.
Plan: home w/ vn. need to verifiy acceptance.
[2023-09-07] MEDS: TOPROL XL PO (16:52)
--- NOTE | 2023-09-07 17:25 | PTCARENOTE ---
Patient with low BP's. Rechecked twice with automatic cuff and by this RN and another RN to confirm BP is low. Hospitalist made aware. Patient was in the the and asymptomatic, patient was able to self assist back to bed. No significant change in
BP and continued to be asymptomatic, Midodrine was changed from daily to TID.
[2023-09-07] MEDS: TYLENOL 1000 MG PO (18:10)
--- NOTE | 2023-09-07 19:12 | W.PN.HOSP.TC ---
Addendum entered and electronically signed by Guerrero Baldwin MD 09/12/23 18:19:
Left hip fracture secondary to mechanical trauma and osteoporosis.
Original Note:
Today's Communication/Plan
-
HD.
Standing dose of midodrine
Monitor for recurrent hypotension
Restart anticoagulation, Eliquis will replace Coumadin
Assessment / Plan
Assessment / Plan
Impression:
Status post mechanical fall and left hip fracture.
Coagulopathy secondary to Coumadin therapy
Conditions prior to admission:
Heart failure recovered EF.
Permanent atrial fibrillation
Anticoagulation with Coumadin
End-stage renal disease on HD.
Chronic hypotension requiring midodrine
Moderate pulmonary hypertension
PAD with history of a left BKA.
Severe aortic stenosis
History of CVA
Anemia of chronic disease.
Seizure disorder
RLS.
Gout.
Osteomyelitis of a C5 on suppressive doxycycline
Plan:
Subacute minimally impacted fracture of the left proximal femur
Orthopedic input appreciated
Coumadin held and reversed with vitamin K down to INR of 1.7 prior to surgery
Status post percutaneous fixation on 09/05.
Hemoglobin stable postoperatively with minimal drop.
Resume anticoagulation with transition from Coumadin to Eliquis.
Cardiovascular.
CHF recovered EF
Permanent atrial fibrillation
PAD
Anticoagulation with Coumadin
Severe aortic stenosis/mild MR
Echocardiogram:Normal left ventricular size and systolic function without regional wall motion
abnormality.
Mildly dilated right ventricle with normal systolic function.
Severe aortic stenosis. Mild aortic regurgitation.
Compared to previous echo 06/16/22, the pulmonary pressure has decreased, the
remaining findings are similar.
Continue metoprolol
Continue midodrine for hypotension
Continue Lipitor.
Stage renal disease
HD as per schedule
Chronic hypotension. Minimally symptomatic
Episode of worsening hypotension over last night , was transferred to ICU, although never required initiation of vasopressor.
Will change midodrine to standing dose.
Seizure disorder on Lamictal
History of spinal osteomyelitis
On doxycycline suppression.
Anticipated Discharge: 24 - 48 hours
Subjective/Interval History
-
Date of Service: September 07, 2023
Objective Data
-
Labs:
Laboratory Results
09/07/23
07:55
Hgb 9.1 L
Hct 27.7 L
Sodium 138
Potassium 4.6
Chloride 103
Carbon Dioxide 23
Vital Signs:
Vital Signs
Temp Pulse Resp BP Pulse Ox
98.1 F 88 15 110/63 94
09/07/23 15:27 09/07/23 18:01 09/07/23 18:01 09/07/23 18:01 09/07/23 18:01
I&O
09/06/23 09/07/23 09/08/23
06:59 06:59 06:59
Intake Total 1200 / 1200 1240 / 1240 1200 / 1200
Output Total 60 / 60
Balance 1200 / 1200 1180 / 1180 1200 / 1200
Physical Exam
-
General: Well Developed and No Apparent Distress
HEENT: Normocephalic, Atraumatic and Moist Mucous Membranes
Respiratory: Clear to Auscultation
Cardiac: Regular Rhythm and S1/S2; Negative Murmur, Rub or Gallop
GI: Soft, Nontender, Nondistended and Normal Bowel Sounds; Negative Organomegaly
Rectal: Deferred by Provider
Musculoskeletal: No Clubbing, No Cyanosis and No Edema
Skin: Negative Rash
Neuro: Nonfocal/Grossly Intact
[2023-09-07] MEDS: ELIQUIS 5 MG PO (19:37)
[2023-09-07] MEDS: VIBRAMYCIN 100 MG PO (21:17)
[2023-09-07] MEDS: LIPITOR 10 MG PO (21:17)
[2023-09-08] VITALS (13 sets, daily range): BP systolic 86–142; BP diastolic 51–105; PULSE 61; O2SAT 97; BMI 25.6
[2023-09-08] MEDS: MELATONIN 3 MG PO (00:15)
[2023-09-08] MEDS: ROXICODONE 5 MG PO (00:15)
[2023-09-08] MEDS: COLACE 100 MG PO ×2 (07:42→12:22)
[2023-09-08] MEDS: ELIQUIS 5 MG PO (07:42)
[2023-09-08] MEDS: LAMICTAL 300 MG PO (07:42)
[2023-09-08] MEDS: ProAmatine 5 MG PO ×2 (07:42→12:22)
--- NOTE | 2023-09-08 09:02 | W.PN.NEPH.PH ---
Today's Communication / Plan
-
dialysis tomorrow
Assessment/Plan
-
Assessment:
ESRD MWF ([facility])
Hx C5 osteomyelitis on suppressive doxycycline
Hypotension (chronic midodrine)
Hyperphosphatemia
Chronic atrial fibrillation
Chronic HFpEF
Severe aortic stenosis
Moderate pulmonary hypertension
Peripheral artery disease status post left BKA
History of CVA
Sleep apnea
Anemia of chronic disease
Seizure disorder
Restless leg syndrome
Neuropathy
Chronic anticoagulation
Left proximal femoral fracture
Plan:
HD tomorrow, orders provided
Outpatient medications may be continued including midodrine as well as Xphozah if patient can bring this in from home
for OR hip screws
-
-
Date of Service: September 08, 2023
CC / HPI / ROS
-
Chief Complaint:
ESRD
History of Present Illness:
BP stable
tolerated HD yesterday
pain controlled from hip fx
Review of Systems:
no CP/SOB
Labs
-
Labs:
WBC 6.4 10^3/uL (4.8-10.8) 09/05/23 05:57
RBC 2.91 10^6/uL (4.70-6.10) L 09/05/23 05:57
Hgb 9.1 g/dL (13.0-18.0) L 09/07/23 07:55
Hct 27.7 % (39.0-52.0) L 09/07/23 07:55
Plt Count 146 10^3/uL (130-400) 09/05/23 05:57
Sodium 138 mmol/L (135-145) 09/07/23 07:55
Potassium 4.6 mmol/L (3.5-5.1) 09/07/23 07:55
Chloride 103 mmol/L (98-107) 09/07/23 07:55
Carbon Dioxide 23 mmol/L (22-30) 09/07/23 07:55
BUN 59 mg/dl (9-20) H 09/05/23 05:57
Creatinine 8.1 mg/dL (0.7-1.3) H* 09/05/23 05:57
eGFR 6.26 09/05/23 05:57
Glucose 102 mg/dl (70-99) H 09/05/23 05:57
Calcium 9.4 mg/dl (8.4-10.2) 09/05/23 05:57
Phosphorus Cancelled 09/07/23 08:33
Albumin 4.5 g/dl (3.5-5.0) 09/04/23 14:39
Physical Exam
-
Vital Signs:
Vital Signs
Temp Pulse Resp BP Pulse Ox
98.1 F 62 15 122/69 98
09/08/23 07:18 09/08/23 07:42 09/08/23 06:00 09/08/23 07:42 09/08/23 08:11
Cardiovascular:: Regular rate and rhythm
Respiratory:: Bilateral: Coarse
Lung Excursion:: Normal
Abdomen:: Nontender and Soft
Bowel Sounds:: Normal
Extremity Edema:: None: Bilateral: and None: Left: (BKA)
Other Findings::
LUE radial avf
--- NOTE | 2023-09-08 09:34 | W.PN.HOSP.TC ---
Addendum entered and electronically signed by Tj Lynch MD 09/09/23 15:12:
[id number]
Original Note:
Today's Communication/Plan
-
HD - ok to go back tomorrow
Standing dose of midodrine -- can wean outpatient
Restart anticoagulation, Eliquis
CBC in 3-5 days with pcp
F/u Ortho outpatient, PCP outpatient
Assessment / Plan
Assessment / Plan
Impression:
Status post mechanical fall and left hip fracture.
Coagulopathy secondary to Coumadin therapy
Conditions prior to admission:
Heart failure recovered EF.
Permanent atrial fibrillation
Anticoagulation with Coumadin
End-stage renal disease on HD.
Chronic hypotension requiring midodrine
Moderate pulmonary hypertension
PAD with history of a left BKA.
Severe aortic stenosis
History of CVA
Anemia of chronic disease.
Seizure disorder
RLS.
Gout.
Osteomyelitis of a C5 on suppressive doxycycline
Plan:
Subacute minimally impacted fracture of the left proximal femur
Orthopedic input appreciated
Coumadin held and reversed with vitamin K down to INR of 1.7 prior to surgery
Status post percutaneous fixation on 09/05.
Hemoglobin stable postoperatively with minimal drop.
Resume anticoagulation with transition from Coumadin to Eliquis.
F/u CBC in 3-5 days with pcp
F/u Ortho, PCP, Cardiology outpatient
Protected weightbearing with assist devices as indicated.
Cardiovascular.
CHF recovered EF
Permanent atrial fibrillation
PAD
Anticoagulation with Coumadin
Severe aortic stenosis/mild MR
Echocardiogram:Normal left ventricular size and systolic function without regional wall motion
abnormality.
Mildly dilated right ventricle with normal systolic function.
Severe aortic stenosis. Mild aortic regurgitation.
Compared to previous echo 06/16/22, the pulmonary pressure has decreased, the
remaining findings are similar.
Continue metoprolol
Continue midodrine for hypotension
Continue Lipitor.
switch to Eliquis
F/u CBC in 3-5 days with pcp
Stage renal disease
HD as per schedule
Chronic hypotension. Minimally symptomatic
Episode of worsening hypotension over last night , was transferred to ICU, although never required initiation of vasopressor.
DC on midodrine standing, wean outpatient as tolerated
Seizure disorder on Lamictal
History of spinal osteomyelitis
On doxycycline suppression.
More than 30 minutes spent in discharge including
Final examination of the patient
Summarizing hospital stay
Instructions for continuing care to all relevant caregivers
Preparation of discharge records, prescriptions, and referral forms
Total time spent (35 in minutes):
Anticipated Discharge: 24 - 48 hours
Subjective/Interval History
-
Date of Service: September 08, 2023
No acute events overnight
Objective Data
-
Vital Signs:
Vital Signs
Temp Pulse Resp BP Pulse Ox
98.1 F 62 15 122/69 98
09/08/23 07:18 09/08/23 07:42 09/08/23 06:00 09/08/23 07:42 09/08/23 08:11
I&O
09/07/23 09/08/23 09/09/23
06:59 06:59 06:59
Intake Total 1240 / 1240 1440 / 1440
Output Total 60 / 60 100 / 100
Balance 1180 / 1180 1340 / 1340
Review of Systems
-
History Source: Patient
All other systems: Not reviewed unless documented
Physical Exam
-
General: Well Developed and No Apparent Distress
HEENT: Normocephalic, Atraumatic and Moist Mucous Membranes
Respiratory: Clear to Auscultation
Cardiac: Regular Rhythm and S1/S2; Negative Murmur, Rub or Gallop
GI: Soft, Nontender, Nondistended and Normal Bowel Sounds; Negative Organomegaly
Rectal: Deferred by Provider
Musculoskeletal: No Clubbing, No Cyanosis and No Edema
Skin: Negative Rash
Neuro: Nonfocal/Grossly Intact
Data Reviewed
-
Diagnostic Radiology: Report Reviewed by me
Labs: Labs Reviewed by me
--- NOTE | 2023-09-08 10:01 | W.PN.ORTHO ---
Today's Communication / Plan
-
77-year-old male postop day 2 cannulated screw fixation for left hip fracture
-Protected weightbearing with assist devices as indicated.
-Pain controlled on current regimen. Diet and DVT prophylaxis per primary
-Minimal strikethrough on dressing not significantly changed since yesterday. Recommend change before discharge
Assessment
.
Distal Motor Intact: Yes
Dressing:
Minimal progression of central strikethrough dressing. No surrounding erythema. Neurovascular intact at baseline
Plan
.
Surgery / Date: 06 September 2023 left hip cannulated screw fixation
Activity:
Out of bed.
PT/OT
Subjective
.
.:
Patient resting comfortably. Reports some continued groin pain
Vital Signs and Labs
.
Vital Signs and Labs:
Lab Results
09/07/23 07:55
09/07/23 07:55
Temp Pulse Resp BP Pulse Ox
98.1 F 62 15 122/69 98
09/08/23 07:18 09/08/23 07:42 09/08/23 06:00 09/08/23 07:42 09/08/23 08:11
PT 19.9 Sec (11.4-14.6) H 09/06/23 06:13
INR 1.71 D 09/06/23 06:13
--- NOTE | 2023-09-08 12:10 | CM ---
Addendum entered by ALTHEA Vera 09/08/23 12:15:
CM spoke with [facility] dialysis who are aware that patient will resume outpatient HD starting tomorrow.
Original Note:
Chart reviewed. Plan for discharge home with Nazia BROWN. Discharge instructions to be faxed to: [phone].
--- NOTE | 2023-09-08 13:04 | W.DS.TRANS ---
DC Summary - [employer]
-
Discharge Instructions:
Discharge Diagnosis/Procedures Status post mechanical fall and left hip
fracture - cannulated screw fixation for left
hip fracture
Coagulopathy secondary to Coumadin therapy
Diet Low Cholesterol,Low Fat
Activity Other activity
Additional Activity partial or protected weight bearing to the left
leg.
Driving Restrictions Not until seen by your Dr
Bathing Restrictions OK to Shower
Blood Work cbc in 3-5 days with pcp
Wound Care maintain aquacell dressing for 7-10 days, then
may remove.
Instructions:
Stand-Alone Forms:
Changes to Home Medications: Yes
Discharge Medications:
DC Medications w/original date entered in [facility]
ascorbic acid (vitamin C) 250 mg tablet 500 mg PO DAILY Supplement 07/14/21
vit B complx, C-iron 8 mg-folic acid 800 mcg-D3 1,000 unit-zinc tablet (ProRenal) 1 tab PO DAILY Supplement ##0 07/14/21
lamotrigine 150 mg tablet (Lamictal) 300 mg PO BID Seizures 11/11/22
melatonin 3 mg tablet 3 mg PO HSPRN PRN sleep 11/11/22
Xphorah 30 mg PO BID Kidney Disease 09/04/23
atorvastatin 10 mg tablet 10 mg PO HS High Cholesterol 09/04/23
cholecalciferol (vitamin D3) 10 mcg (400 unit) tablet 10 mcg PO DAILYPRN PRN winter only 09/04/23
docusate sodium 100 mg capsule 100 mg PO MEALS Constipation 09/04/23
doxycycline monohydrate 100 mg tablet 100 mg PO HS Infection 09/04/23
metoprolol succinate 25 mg tablet,extended release 24 hr 25 mg PO DAILY@1600 Blood Pressure 09/04/23
pramipexole 0.5 mg tablet 0.5 mg PO HSPRN PRN restless legs 09/04/23
acetaminophen 500 mg tablet (Tylenol Extra Strength) 1,000 mg (2 x 500 mg) PO Q6HPRN PRN mild to mod pain #60 tabs 09/08/23
apixaban 5 mg tablet (Eliquis) 5 mg PO BID 30 days #60 tabs 09/08/23
midodrine 5 mg tablet 5 mg PO TID@0800,1300,1800 30 days #90 tabs 09/08/23
Home Medication Changes
acetaminophen 500 mg tablet (Tylenol Extra Strength) 1,000 mg (2 x 500 mg) PO Q6HPRN PRN mild to mod pain #60 tabs 09/08/23
apixaban 5 mg tablet (Eliquis) 5 mg PO BID 30 days #60 tabs 09/08/23
midodrine 5 mg tablet 5 mg PO TID@0800,1300,1800 30 days #90 tabs 09/08/23
Pending Results: No
--- NOTE | 2023-09-08 14:26 | PTCARENOTE ---
Discharge instructions reviewed with Pt and Pt's ; Pt had questions regarding VN & HD post-discharge - CM contacted and questions answered. L Hip aquacel changed as per order. Home medication returned to Pt. Discharged to home with .
== END 2023-09-08 15:48 | disposition home health service (06) | DRG 480 ==
LOC: IMU 15:46
PROVIDERS: Internal Medicine; Nurse Practitioner; Physician Assistant Surgical; Specialist; ADMITTING PHYSICIAN Internal Medicine; ATTENDING PHYSICIAN Internal Medicine; CONSULT PHYSICIAN Internal Medicine Cardiovascular Disease; CONSULT PHYSICIAN Specialist; EMERGENCY PHYSICIAN Student in an Organized Health Care Education/Training Program; FAMILY PHYSICIAN Internal Medicine; OTHER PHYSICIAN Orthopaedic Surgery
PROC: 5A1D70Z Performance of Urinary Filtration, Intermittent, Less than 6 Hours Per Day (ICD-10-PCS; 2023-09-05)
PROC: 0QS734Z Reposition Left Upper Femur with Internal Fixation Device, Percutaneous Approach (ICD-10-PCS; 2023-09-06)
DX: M80.052A Age-related osteoporosis with current pathological fracture, left femur, initial encounter for fracture (principal); N18.6 End stage renal disease; E87.1 Hypo-osmolality and hyponatremia; I13.2 Hypertensive heart and chronic kidney disease with heart failure and with stage 5 chronic kidney disease, or end stage renal disease; I50.22 Chronic systolic (congestive) heart failure; I42.8 Other cardiomyopathies; M46.22 Osteomyelitis of vertebra, cervical region; D84.821 Immunodeficiency due to drugs; I48.21 Permanent atrial fibrillation; D68.9 Coagulation defect, unspecified; G40.909 Epilepsy, unspecified, not intractable, without status epilepticus; I35.0 Nonrheumatic aortic (valve) stenosis; I27.20 Pulmonary hypertension, unspecified; E87.5 Hyperkalemia; I95.3 Hypotension of hemodialysis; D63.8 Anemia in other chronic diseases classified elsewhere; G25.81 Restless legs syndrome; M10.9 Gout, unspecified; I73.9 Peripheral vascular disease, unspecified; G47.30 Sleep apnea, unspecified; E78.5 Hyperlipidemia, unspecified; W05.0XXA Fall from non-moving wheelchair, initial encounter; Y93.89 Activity, other specified; Y92.000 Kitchen of unspecified non-institutional (private) residence as the place of occurrence of the external cause; Z87.891 Personal history of nicotine dependence; Z86.73 Personal history of transient ischemic attack (TIA), and cerebral infarction without residual deficits; Z89.512 Acquired absence of left leg below knee; Z79.01 Long term (current) use of anticoagulants; Z79.2 Long term (current) use of antibiotics
CPT/HCPCS: 73502; 73700; 76000; 80048; 80051; 80053; 84100; 85014; 85018; 85025; 85027; 85610; 85730; 86850; 86900; 86901; 93005; 97116; 97163; 97167; 97530; 99285; C1713; C1769; G0257; P9047; Q5106

== ENCOUNTER → 2023-11-29 11:29 | Outpatient (REF) | payer OTHER, SELFPAY | LOC: RAD 11:29 | PROVIDERS: ATTENDING PHYSICIAN Internal Medicine | DX: R05.1 Acute cough (principal); Z87.81 Personal history of (healed) traumatic fracture; N18.6 End stage renal disease; Z99.2 Dependence on renal dialysis | CPT/HCPCS: 71046 ==

== ENCOUNTER 2023-12-31 14:20 | Emergency (ER) | payer OTHER, SELFPAY ==
[2023-12-31 14:26] VITALS: BP 100/72
--- NOTE | 2023-12-31 17:28 | ED.GENMED ---
History of Present Illness
<GREG Boudreaux - Last Filed: 12/31/23 20:09>
General
Chief Complaint: Musculo-Skeletal Complaint
Source: patient and spouse
Time Seen by Provider: 12/31/23 17:00
Nursing documentation reviewed up to this point in time: agreed with
History of Present Illness
History of Present Illness:
A 78 yo male with a PMH of L below the knee amputation, L hip ORIF with nail, ESKD, PAD, seizures, presents to the ED for a fall. He states this afternoon he was walking with his cane blowing leaving in the front yard when he lost his balance and
fell on his left hip. He stated that he hit 'more on my butt, than on my side'. He denies losing consciousness or hitting his head. He also confirms this as she witnessed the fall. He was able to walk '30 ft' to the front pouch and sit down in
a chair after the fall. He states that walking with his prosetic has been increasing difficult as it seems to 'fit looser'. His last prostetic is form 01/27 and he recently got fitted for a new one 3 weeks ago and is still waiting for the new
prosthetic pending [facility] approval. He denies chest pain, SOB, N/V, dizziness, loss of bladder function.
He has an extensive surgical history.
Past History
<GREG Boudreaux - Last Filed: 12/31/23 20:09>
Past History
ED Past Medical History: Arrthythmia (Atrial fib), CHF, CVA, HTN, Hypercholesterolemia, Renal failure (Dialysis T-Th- S), Seizures and Other (Difficulty with balance, Neuropathy, Paresthesia arms and legs, Sleep apnea, Diverticulosis Cellulitis,
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
ED Past Surgical History: Cardiac (Cardioversion X 2), Orthopedic (C2-C3 surgery, Left leg BKA), Tonsilectomy and Other (Cataracts extracted in 2011, ocular muscle detachment 2016, nasal polypectomy, deviated septum repair 1987, thyroid biopsy)
Patient has exhibited threatening behavior?: No
PSI?: No
Social History
Tobacco: Former smoker
Alcohol: None
Drug: None
Personal:
Living: with family
Employment: Retired
Family History
Family History: Other (reviewed and noncontributory)
Review of Systems
<GREG Boudreaux - Last Filed: 12/31/23 20:09>
Review of Systems
Allergies reviewed?: Yes
All Other Systems: ROS reviewed and negative except as documented in HPI and ROS
Phy Exam
<GREG Boudreaux - Last Filed: 12/31/23 20:09>
General Physical Exam
General Presentation: well appearing and no apparent distress
General age: appears stated age
General Skin: warm and dry
General Habitus: normal
General Mental: alert
General Hydration: appears well hydrated
Cardiovascular Exam
Cardiovascular Exam: regular rate/rhythm, no edema, no gallop and systolic murmur
Pulmonary Exam
Pulmonary Exam: lungs clear, no respiratory distress, no rales, no crackles, no rhonchi and no wheezing
Neurological Exam
Neurological Exam: alert, oriented x3 and no motor deficits
Musculoskeletal Exam
Musculoskeletal Exam: full ROM, neuro vasc intact and other (minimal L hip pain with flexion and ADDuction )
Skin Exam
Skin Exam: normal color, warm/dry and no rash
Course
<GREG Boudreaux - Last Filed: 12/31/23 20:09>
Orders/Labs/Results
Orders:
Orders
12/31/23 14:29
Hip, Left 2-3 Views [CR Hip - LT w/wo Pel 2-3 Vw*] Urgent
Comment:
Reason For Exam: fall
Include a pelvis x-ray?: Yes
Vital Signs
Initial and Last Documented VS:
Initial Vital Signs
Temp Pulse Resp BP Pulse Ox
98.3 F 119 16 100/72 95
12/31/23 14:26 12/31/23 14:26 12/31/23 14:26 12/31/23 14:26 12/31/23 14:26
Last Documented Vital Signs
Temp Pulse Resp BP Pulse Ox
98.3 F 74 16 105/63 100
12/31/23 14:26 12/31/23 18:47 12/31/23 14:26 12/31/23 18:47 12/31/23 18:47
<Clint Cassidy DO - Last Filed: 12/31/23 18:33>
Orders/Labs/Results
Orders:
Orders
12/31/23 14:29
Hip, Left 2-3 Views [CR Hip - LT w/wo Pel 2-3 Vw*] Urgent
Comment:
Reason For Exam: fall
Include a pelvis x-ray?: Yes
Vital Signs
Initial and Last Documented VS:
Initial Vital Signs
Temp Pulse Resp BP Pulse Ox
98.3 F 119 16 100/72 95
12/31/23 14:26 12/31/23 14:26 12/31/23 14:26 12/31/23 14:26 12/31/23 14:26
Last Documented Vital Signs
Temp Pulse Resp BP Pulse Ox
98.3 F 74 16 105/63 100
12/31/23 14:26 12/31/23 18:47 12/31/23 14:26 12/31/23 18:47 12/31/23 18:47
<GREG Boudreaux - Last Filed: 12/31/23 20:09>
MDM/Problems Addressed
Differential Diagnosis Includes:
L hip fracture.
<Clint Cassidy DO - Last Filed: 12/31/23 18:33>
*Critical Care Note
Total Time (30-74mins, 75-104mins- exclusive of procedures): Not Applicable
ED Attending Note
<GREG Boudreaux - Last Filed: 12/31/23 20:09>
-
Portions of this chart may have been created with voice recognition software.� Occasional wrong word or��sound alike� substitutions may have occurred due to the inherent limitations of voice recognition software.
<Clint Cassidy, - Last Filed: 12/31/23 18:33>
ED Attending Note
Patient seen and examined by attending physician: Yes
I performed the substantive portion of visit, reviewed & personally made and approve the management plan that is documented in note by myself or WILLY.: Yes
ED Attending Note:
This a pleasant 78-year-old male that presents with left sided lower extremity pain after a fall today. He does have a left BKA with a left hip ORIF. He does have vascular issues and had the amputation by Dr. Malhotra and the hip replacement by
Lola. Patient states that he did not hit his head or lose consciousness. Patient was able to ambulate. Patient was seen in conjunction with the PA student. I have reviewed and agree with the history and treatment plan presented. On my
independent physical exam, patient is awake, alert, and oriented x3, minimal acute distress, he does have a prosthetic leg. Normal hip rolling test. Slight pain with adduction. Good pulses. Patient was able to ambulate and pivot around the room
without issue or pain. Patient to be discharged home he will follow-up with Dr. Davila for continued discomfort. He will take Tylenol which he refused here but will take at home.
Discharge Plan
Departure
Patient Disposition: Home (Routine Discharge)
Date of Disposition: 12/31/23
Time of Disposition: 18:29
Patient with high blood pressure during this ER visit?: Yes
Condition: Good
Discharge Problem:
Musculoskeletal leg pain
Instructions: Muscle and Bone Pain (DC)
Prescriptions:
No Action
ascorbic acid (vitamin C) 250 MG tablet
500 mg PO DAILY
ProRenal 8 mg iron-800 mcg-1,000 unit Tablet
1 tab PO DAILY Qty: 0
lamotrigine [Lamictal] 150 mg tablet
300 mg PO BID
melatonin 3 mg tablet
3 mg PO HSPRN PRN (Reason: sleep)
doxycycline monohydrate 100 mg tablet
100 mg PO HS MDD `
pramipexole 0.5 mg tablet
0.5 mg PO HSPRN PRN (Reason: restless legs)
metoprolol succinate 25 mg tablet extended release 24 hr
25 mg PO DAILY@1600
cholecalciferol (vitamin D3) 10 mcg (400 unit) Tablet
10 mcg PO DAILYPRN PRN (Reason: winter only)
atorvastatin 10 mg tablet
10 mg PO HS
docusate sodium 100 mg capsule
100 mg PO MEALS
midodrine 5 mg Tablet
5 mg PO TID@0800,1300,1800 30 Days Qty: 90 0RF
acetaminophen [Tylenol Extra Strength] 500 mg Tablet
1,000 mg PO Q6HPRN PRN (Reason: mild to mod pain) Qty: 60 0RF
Eliquis 5 mg Tablet
5 mg PO BID 30 Days Qty: 60 0RF
Xphozah 30 mg Tablet
30 mg PO MOWEFR@1800
Rx Instructions:
administer immediately before last meal of day
Xphozah 30 mg Tablet
30 mg PO SUTUTHSA@0800,1730
Rx Instructions:
administer immediately before first and last meals of day
Referrals:
Sendy Davila I., DO [Active] -
Activity Restrictions/Additional Instructions:
[Your prescriptions were sent electronically to the pharmacy that you specified.]
It was a pleasure meeting you and taking part in your care. We hope for your continued healing and wellness.
Please read discharge instructions in their entirety. However, they are for general education and may not describe your exact diagnosis at discharge. Information on your ER visit and medical conditions were discussed with you along with appropriate
follow up information...
If indicated, please take your medications as instructed and indicated on discharge paperwork.
Please schedule a follow up appointment as directed. Call to schedule an appointment
Please return to the emergency department with ANY change in, persisting, or worsening of symptoms. If any of your symptoms do not improve, or persist, or become more severe within 6-12 hours, please return to the emergency department for further
care.
Please return to the emergency department if you develop a headache, neck pain/stiffness, fever greater than 100.4F, chest pain, shortness of breath, persistent nausea, vomiting, slurred speech, difficulty walking, numbness/tingling, weakness, signs
of infection or any other symptoms that are worrisome to you.
If you have any questions or concerns please do not hesitate to call the Hospital at or E-mail me directly at [email or web address]
Interventions
Interventions:
*Risk Screen - Suicide Last Done: 12/31/23 14:26
*General Assessment Last Done: 12/31/23 14:26
*Neglect/Abuse Screening Last Done: 12/31/23 14:26
*Nursing Disposition Last Done: 12/31/23 19:02
ED-Musculoskeletal Assessment Last Done: 12/31/23 19:02
Discharge Date and Time
Print Language: GUATEMALAN
[2023-12-31 18:47] VITALS: BP 105/63
== END 2023-12-31 19:02 | disposition home or self-care (01) ==
LOC: EMR 14:20
PROVIDERS: EMERGENCY PHYSICIAN Student in an Organized Health Care Education/Training Program; FAMILY PHYSICIAN Internal Medicine
DX: M79.605 Pain in left leg (principal); M25.552 Pain in left hip; W19.XXXA Unspecified fall, initial encounter; Y93.H2 Activity, gardening and landscaping; Y92.007 Garden or yard of unspecified non-institutional (private) residence as the place of occurrence of the external cause; I13.2 Hypertensive heart and chronic kidney disease with heart failure and with stage 5 chronic kidney disease, or end stage renal disease; N18.6 End stage renal disease; Z99.2 Dependence on renal dialysis; I73.9 Peripheral vascular disease, unspecified; R56.9 Unspecified convulsions; G47.30 Sleep apnea, unspecified; G25.81 Restless legs syndrome; E78.00 Pure hypercholesterolemia, unspecified; K57.90 Diverticulosis of intestine, part unspecified, without perforation or abscess without bleeding; I48.91 Unspecified atrial fibrillation; I35.0 Nonrheumatic aortic (valve) stenosis; M19.90 Unspecified osteoarthritis, unspecified site; D64.9 Anemia, unspecified; G62.9 Polyneuropathy, unspecified; M10.9 Gout, unspecified; Z79.01 Long term (current) use of anticoagulants; Z89.512 Acquired absence of left leg below knee; Z86.73 Personal history of transient ischemic attack (TIA), and cerebral infarction without residual deficits; Z87.891 Personal history of nicotine dependence
CPT/HCPCS: 99283; 73502

== ENCOUNTER → 2024-01-19 08:26 | Outpatient (REF) | payer OTHER, SELFPAY | LOC: RAD 08:26 | PROVIDERS: ATTENDING PHYSICIAN Surgery Vascular Surgery; FAMILY PHYSICIAN Internal Medicine | DX: I65.23 Occlusion and stenosis of bilateral carotid arteries (principal) | CPT/HCPCS: 93880; 93922; 93925 ==

== ENCOUNTER → 2024-03-20 15:25 | Outpatient (REF) | payer OTHER, SELFPAY | LOC: RAD 15:25 | PROVIDERS: FAMILY PHYSICIAN Internal Medicine | DX: M25.462 Effusion, left knee (principal) | CPT/HCPCS: 73564 ==

== ENCOUNTER → 2024-04-17 14:46 | Outpatient (REF) | payer OTHER, SELFPAY | LOC: RCS 14:46 | PROVIDERS: ATTENDING PHYSICIAN Internal Medicine Cardiovascular Disease; FAMILY PHYSICIAN Internal Medicine | DX: I48.21 Permanent atrial fibrillation (principal); I35.0 Nonrheumatic aortic (valve) stenosis; I42.8 Other cardiomyopathies | CPT/HCPCS: 93306 ==

== ENCOUNTER 2024-07-03 07:26 | Day surgery (SDC) | payer OTHER, SELFPAY ==
[2024-07-03] VITALS (13 sets, daily range): BP systolic 92–152; BP diastolic 53–126; BMI 26.1
--- NOTE | 2024-07-03 10:26 | ITS.CL.PN ---
Him Specialist - Procedure Note
Procedure
Procedure Note:
CARDIAC CATHETERIZATION REPORT
Date of Procedure: 07/03/2024
Referring: Dr. Bruno Castro MD
Indication: severe aortic stenosis
PROCEDURE(S)
1. right heart catheterization
2. coronary angiography
ACCESS
1. 6F right radial artery (closure: radial band)
2. 5F right antecubital vein (closure: manual hemostasis)
CATHETERS
1. 5F [place]
2. 6F JR4
3. 6F JL3.5
MODERATE SEDATION: 25 minutes of moderate sedation was utilized. An independent medical assistant cardiology was present to assist with and help manage the patient's level of consciousness and physiologic status.
HEMODYNAMIC DATA
AO 107/64 (mean 77) mmHg
RA 17 mmHg
RV 46/7 (EDP 15) mmHg
PA 51/24 (mean 35) mmHg
PCWP 25 mmHg
SaO2 91.3%
SvO2 58.7%
Hb 9.7 g/dL
CO/CI 5.07/2.91 L/min/m2
SVR 947 dsc*-5
PVR 2.0 Wood units
CORONARY ANGIOGRAPHY
Dominance: right
LM: Large and normal
LAD: Large vessel giving rise to a moderate caliber high-rising D1/ramus, moderate caliber D2, and small D3. There is a focal moderate stenosis at the ostium of the D2 and otherwise mild nonobstructive disease.
LCx: Large vessel giving rise to a large OM1 and small LPL branch. There is mild nonobstructive disease.
RCA: Moderate caliber vessel giving rise to a small RPDA. There is mild nonobstructive disease.
RADIATION: dose 240.81 mGy; DAP 24.3954 Gy*cm2; fluoroscopy time 4.1 min
CONCLUSIONS
1. Nonobstructive coronary artery disease in a codominant system as described.
2. Elevated biventricular filling pressures, moderate postcapillary pulmonary hypertension, and normal cardiac output.
RECOMMENDATION: proceed with TAVR workup
Copy to: Dr. Bruno Castro MD (community integration specialist); Dr. Romelia Zapata DO (PCP)
Signed: Maxwell Castrejon MD, PhD
--- NOTE | 2024-07-03 12:47 | CONSULT.STRU ---
Consultation
-
Date/Time Consultation Requested: 07/03/2024
Date/Time Consultation Performed: 07/03/2024
Requesting Provider: Maxwell Castrejon
Performing Provider: CRISSY Weiner
Reason for Consultation: Aortic stenosis
Patient History
Physicians
Family Physician: Romelia Zapata
Outpatient Textbook Associate: Bruno Castro
Primary Textbook Associate: Bruno Castro
History of Present Illness
Michael. Dietrich is a very pleasant 78-year-old male with permanent atrial fibrillation,�previously on Coumadin and now on Eliquis , h/o nonischemic cardiomyopathy with ejection fraction 35 to 40% which has since normalized, severe aortic
stenosis,��ESRD on HD (-W-), left below the knee amputation (left lower extremity prosthesis). He denies CP, syncope,near syncope, PND, orthopnea or SOB. He has noted increased SEPULVEDA and is notes it has progressed over at least the last month.
He denies having any new issues with dialysis. He states they have not been having problem getting off fluid utilizing his left forearm AVF.� He still does use midodrine for lower blood as needed.
Today he is here, accompanied by his , for cardiac cath. His most recent echocardiogram on 04/17/2024 was notable for EF 55-60%, aortic valve PG/M/54, DARRION 0.5cm2, AV peak velocity 4.56m/s. Also of note is trace AI, mild MR and mild TR.
Cardiac cath today with Nonobstructive coronary artery disease in a codominant system. Elevated biventricular filling pressures, moderate postcapillary pulmonary hypertension, and normal cardiac output. Plan will be to proceed with outpatient
evaluation for TAVR.
Reviewed the pathophysiology of aortic stenosis with the patient and his . Explained the treatment options of SAVR and TAVR. Explained the TAVR evaluation process including follow up BMP (not needed because of HD), CT TAVR scan, CT surgery
consult and Heart Team discussion. Provided with script and appointment for CT TAVR, Consult appointment with Dr. Zambrano and a copy of the TAVR education booklet with contact information. Allowed for and answered questions.
Past Medical History
Past Medical History: Atrial Fib (Eliquis BID), SEPULVEDA, GERD, HTN, Hypercholesterolemia, IVON (h/o but not since weight loss), Renal Failure (ESRD M-W-F: [facility]), Valvular Disease (Severe , trace AI, mild TR and MR) and Other (secondary
parathyroidism, anemia, colon polyps, seizure disorfer (last 2007), restless leg syndrom, osteopenia, left renal mass)
Past Surgical History
Past Surgical History: Other (bilateral lens implants, sebaceous cyst removed, nasal polypectomy, Left forearm AVF, left BKA, left hip Fx repair)
Dental History
[facility]
Family History
Mother: at Age (74) and Cause of
Social History
Alcohol: None
Drug: None
Tobacco: Former Smoker
Personal:
Living: With Spouse
Employment: Retired
Allergies
Allergy/AdvReac Type Severity Reaction Status Date / Time
No Known Allergies Allergy Verified 07/03/24 08:06
Home Medications
�Medication �Instructions �Recorded �Confirmed �Type
ascorbic acid (vitamin C) 250 mg 500 mg PO QPM Supplement 07/14/21 07/03/24 History
tablet
vit B complx, C-iron 8 mg-folic 1 tab PO DAILY Supplement ##0 07/14/21 07/03/24 History
acid 800 mcg-D3 1,000 unit-zinc
tablet (ProRenal)
lamotrigine 150 mg tablet 300 mg PO BID Seizures 11/11/22 07/03/24 History
(Lamictal)
melatonin 3 mg tablet 3 mg PO HSPRN PRN sleep 11/11/22 07/03/24 History
atorvastatin 10 mg tablet 10 mg PO HS High Cholesterol 09/04/23 07/03/24 History
cholecalciferol (vitamin D3) 10 10 mcg PO DAILYPRN PRN winter only 09/04/23 07/03/24 History
mcg (400 unit) tablet
doxycycline monohydrate 100 mg 100 mg PO HS Infection 09/04/23 07/03/24 History
tablet
metoprolol succinate 25 mg 25 mg PO DAILY@1600 Blood Pressure 09/04/23 07/03/24 History
tablet,extended release 24 hr
pramipexole 0.5 mg tablet 0.5 mg PO HSPRN PRN restless legs 09/04/23 07/03/24 History
acetaminophen 500 mg tablet 1,000 mg (2 x 500 mg) PO Q6HPRN 09/08/23 07/03/24 Rx
(Tylenol Extra Strength) PRN mild to mod pain #60 tabs
apixaban 5 mg tablet (Eliquis) 5 mg PO BID 30 days #60 tabs 09/08/23 07/03/24 Rx
midodrine 5 mg tablet 5 mg PO TID@0800,1300,1800 30 days 09/08/23 07/03/24 Rx
#90 tabs
tenapanor 30 mg tablet (Xphozah) 30 mg PO MOWEFR@1800 Kidney Disease 09/08/23 07/03/24 History
tenapanor 30 mg tablet (Xphozah) 30 mg PO SUTUTHSA@0800,1730 Kidney 09/08/23 07/03/24 History
Disease
STS%
STS %: 8.41%
Review of Systems
-
History Source: Patient and Family
General: Reports Weight Loss (100lbs over 5 years, change in diet)
HEENT: Reports No Symptoms
Respiratory: Reports SEPULVEDA; Denies PND
Cardiac: Reports Known Vascular Disease (h/o R-BKA); Denies Palpitations, Nausea, Vomiting or Edema
Abdomen/GI: Reports Reflux; Denies Abdominal Pain, Indigestion, Nausea, Vomiting or Diarrhea
: Reports No Symptoms and Other (voids minimal, on hemodialysis M-W-F)
Musculoskeletal: Reports No Symptoms
Skin: Reports No Symptoms
Neurological: Reports Syncope (h/o in 2012) and Seizures (last seizure 2007)
Vascular: Reports PVD (left BKA)
Physical Exam
Vital Signs
Temp 97.7 F 07/03/24 07:40
Temp route: Oral 07/03/24 07:40
Pulse 64 07/03/24 12:00
Resp Rate 16 07/03/24 10:15
Blood pressure 152/126 07/03/24 11:57
Blood pressure extremity used: Right calf 07/03/24 10:15
Position: Sitting 07/03/24 10:15
MAP (cuff-Anu Monitor) 135 07/03/24 11:57
SaO2 95 07/03/24 12:00
Oxygen Mode of Delivery Room air 07/03/24 10:15
Can the patient verbally communicate their pain? Yes 07/03/24 10:15
Actual Weight 68.87 kg 07/03/24 08:05
Body Mass Index (BMI) 26.1 07/03/24 08:05
Labs
06/19/2024:
WBC: 5.81
Hgb: 9.4
HCT: 29.4
Platelets: [id number]
BUN: 56
Creat: 7.72
Diagnostic Studies
Echocardiogram 04/17/2024:
CONCLUSIONS
Normal left ventricular size and systolic function without wall motion
abnormalities.
Mildly dilated right ventricle with normal systolic function.
Severe aortic stenosis (mean 54 mmHg, DARRION 0.5 cmsq).
Severe biatrial enlargement.
Since the prior study of 06/28/2023 the has progressed mildly. The mean AoV
gradient has increased from 39 mmHg to 54 mmHg and the AoV area has decreased
from 0.7 to 0.5 cmsq.
Indications:
AFIB; Nonrheumatic aortic valve stenosis; Non-ischemic ardiomyopathy
Rhythm: Atrial fibrillation
Portable Study: No
Technical Quality: Good
Contrast: None
BP: 102 / 60
PROCEDURE
A complete Transthoracic Echocardiogram was performed utilizing two-dimensional
evaluation with color flow and spectral Doppler analysis.
FINDINGS
Left Ventricle
Normal left ventricular size and systolic function. Mild concentric left
ventricular hypertrophy. No regional wall motion abnormalities are seen. LV
ejection fraction is 55-60% by Martinez's method of discs. Diastolic function
indeterminate (AFib).
Right Ventricle
Mildly dilated right ventricle with normal systolic function.
Left Atrium
Indexed LA volume is severely abnormal (> 48 mL/m2).
Right Atrium
Severely dilated right atrium.
Mitral Valve
Mitral valve opens normally. Thickened mitral valve leaflets. Mild mitral
regurgitation.
Aortic Valve
Thickened aortic valve with restricted leaflet motion. Severe aortic stenosis.
The peak gradient across the valve is 83 mmHg with a mean of 54 mmHg. Using a
LVOT diameter of 2.2 cm, the DARRION is 0.5 cm sq. Trace aortic regurgitation.
Tricuspid Valve
Tricuspid valve opens normally. Mild tricuspid regurgitation. Estimated
pulmonary artery pressure of 32 mmHg assuming a right atrial pressure of 3
mmHg.
Pulmonic Valve
Structurally normal pulmonic valve without significant stenosis or
regurgitation.
Pericardium\\Pleura
Normal pericardium without effusion.
Aorta
The aortic root is of normal size. Normal ascending aorta.
Other Finding
The IVC is of normal size but does not collapse. Interatrial septum is intact
with no evidence of shunting by color flow Doppler.
Cardiac Cath 07/03/2024:
HEMODYNAMIC DATA
AO 107/64 (mean 77) mmHg
RA 17 mmHg
RV 46/7 (EDP 15) mmHg
PA 51/24 (mean 35) mmHg
PCWP 25 mmHg
SaO2 91.3%
SvO2 58.7%
Hb 9.7 g/dL
CO/CI 5.07/2.91 L/min/m2
SVR 947 dsc*-5
PVR 2.0 Wood units
CORONARY ANGIOGRAPHY
Dominance: right
LM: Large and normal
LAD: Large vessel giving rise to a moderate caliber high-rising D1/ramus, moderate caliber D2, and small D3. There is a focal moderate stenosis at the ostium of the D2 and otherwise mild nonobstructive disease.
LCx: Large vessel giving rise to a large OM1 and small LPL branch. There is mild nonobstructive disease.
RCA: Moderate caliber vessel giving rise to a small RPDA. There is mild nonobstructive disease.
RADIATION: dose 240.81 mGy; DAP 24.3954 Gy*cm2; fluoroscopy time 4.1 min
CONCLUSIONS
1. Nonobstructive coronary artery disease in a codominant system as described.
2. Elevated biventricular filling pressures, moderate postcapillary pulmonary hypertension, and normal cardiac output.
RECOMMENDATION: proceed with TAVR workup
Exam
General: Well Developed, No Apparent Distress and Comfortable
HEENT: Normocephalic, Moist Mucous Membranes and PERRLA
Neck: Trachea Midline
Respiratory: Clear; Negative Wheezes, Crackles or Rhonchi
Cardiac: S1/S2, Irregular Rhythm and Murmur (Grade II/ ARUN)
GI: Soft, Non Tender, Non Distended and Normal Bowel Sounds
Rectal: Deferred by Provider
Skin: Warm
Neuro: AO x 3 and Nonfocal/Grossly Intact
Extremities: Negative Lower Level Edema
Psych: Calm
Assessment / Plan
-
Procedure Type:�Isolated AVR
Perioperative Outcome Estimate %
Operative Mortality 8.41%
Morbidity & Mortality 21.7%
Stroke 3.9%
Renal Failure NA
Reoperation 6.8%
Prolonged Ventilation 11%
Deep Sternal Wound Infection 0.076%
Long Hospital Stay (>14 days) 12.9%
Short Hospital Stay (<6 days)* 13.9%
Severe Aortic stenosis:
����������� Continue evaluation for aortic stenosis as outpatient
����������� BMP not necessary secondary to HD
����������� CT TAVR scan 07/10/2024 at
����������� CT surgery consult with Dr. Zambrano 07/24/2024
����������� Dental Clearance ([facility])
����������� Heart team discussion at [facility]
Data Reviewed
-
EKG: Report Reviewed by me
Underwater Trapper: Report Reviewed by me, Discussed with Physician, Discussed with Patient and Discussed with Family
Echo: Report Reviewed by me, Discussed with Patient and Discussed with Family
Labs: Labs Reviewed by me
Old Records: Reviewed (previous cardiology consult notes)
Total Time Spent with Patient (in minutes): 35
== END 2024-07-03 13:23 | disposition home or self-care (01) ==
LOC: CATH 07:26
PROVIDERS: ATTENDING PHYSICIAN Student in an Organized Health Care Education/Training Program; FAMILY PHYSICIAN Internal Medicine
DX: I35.0 Nonrheumatic aortic (valve) stenosis (principal); I42.8 Other cardiomyopathies; I48.21 Permanent atrial fibrillation; N18.6 End stage renal disease; Z89.512 Acquired absence of left leg below knee; Z99.2 Dependence on renal dialysis; I13.11 Hypertensive heart and chronic kidney disease without heart failure, with stage 5 chronic kidney disease, or end stage renal disease; Z87.891 Personal history of nicotine dependence; I27.20 Pulmonary hypertension, unspecified; I48.0 Paroxysmal atrial fibrillation; K21.9 Gastro-esophageal reflux disease without esophagitis; G47.33 Obstructive sleep apnea (adult) (pediatric); E78.00 Pure hypercholesterolemia, unspecified
CPT/HCPCS: 93456; 93460; 99152; 99153; C1894; Q9967

== ENCOUNTER → 2024-07-10 09:08 | Outpatient (REF) | payer OTHER, SELFPAY | LOC: RAD 09:08 | PROVIDERS: ATTENDING PHYSICIAN Nurse Practitioner Adult Health; FAMILY PHYSICIAN Internal Medicine | DX: I35.0 Nonrheumatic aortic (valve) stenosis (principal) | CPT/HCPCS: 74174; 75572; Q9967 ==

== ENCOUNTER 2024-08-16 07:44 | Inpatient (IN) | payer OTHER, SELFPAY ==
--- NOTE | 2024-08-09 12:17 | W.PN.UPDATE ---
Addendum entered and electronically signed by CRISSY Ochoa 08/16/24 09:23:
The below note was entered under the wrong patient.
Original Note:
Update Note
Progress Note Update
Reviewed patient with the heart team in the preTAVR SDM meeting and confirmed a 23 mm S3 resilia via right TF access. Mr. Vazquez will resume aspirin post TAVR. LVEDP 5 mmHg. #23mm S3 resilia (serial# [id number]) successfully deployed via right
transfemoral access. Post implant MG 5mmHg.
[2024-08-09 13:33] LABS: Urine Albumin 4+ (Neg - Trace); Urine Bilirubin Negative (Negative); Urine Character Slightly Cloudy (Clear); Urine Color Yellow; Urine Glucose Negative (Negative); Urine Ketone Negative (Negative); Urine Leukocyte 3+ (Negative); Urine Nitrite Negative (Negative); Urine Occult Blood 4+ (Negative); Urine Urobilinogen Negative (Neg - 1+)
[2024-08-09 13:34] LABS: % Basophils 1.5 % (0-2); % Eosinophils 8.6 % (0-6); % Lymphocytes 18.8 % (20.5-51.1); % Neutrophils 62.1 % (42.2-75.2); Absolute Basophils 0.1 10^3/uL (0-0.2); Absolute Eosinophils 0.5 10^3/uL (0-0.7); Absolute Monocytes 0.5 10^3/uL (0.1-0.6); Absolute Neutrophils 3.4 10^3/uL (1.4-6.5); Hematocrit 33.2 % (39.0-52.0); Hemoglobin 10.8 g/dL (13.0-18.0); Mean Corp Hgb Conc. 32.5 g/dL (33.0-37.0); Mean Corpuscular Hgb 34.3 pg (27.0-31.0); Mean Corpuscular Volume 105.4 fL (80.0-94.0); Mean Platelet Volume 9.9 fL (7.4-10.4); Nucleated Red Blood Cells % 0 % (-); Platelet Count 149 10^3/uL (130-400); Red Blood Cell Count 3.15 10^6/uL (4.70-6.10); Red Cell Dist. Width 15.5 % (11.5-14.5); White Blood Cell Count 5.4 10^3/uL (4.8-10.8)
[2024-08-09 13:36] LABS: INR 1.44; PT 18.1 Sec (11.4-14.6)
[2024-08-09 13:37] LABS: APTT 40.4 Sec (23.4-35.0)
[2024-08-09 13:47] VITALS: BMI 26.8
[2024-08-09 13:48] LABS: NT-proBNP > 27000 pg/ml
[2024-08-09 13:52] LABS: Urine Bacteria Moderate (Negative); Urine Red Blood Cell 26-30 /HPF (0-2); Urine White Cell 50-60 /HPF (0-5)
--- NOTE | 2024-08-09 13:59 | W.PN.UPDATE ---
Update Note
Progress Note Update
Assessed patient in preadmission testing and confirmed medication list. Mr. Dietrich will take last dose Eliquis Tuesday (08/13) pm dose. While Eliquis held, he will take 325mg aspirin Tuesday (08/14), aspirin 81 mg Tuesday (08/15) and (08/16).
He will arrive to the [facility] at 0730. Nephrology notified and patient will be getting HD on Tuesday. Patient understands the risks of the procedure as reviewed with Dr. Zambrano in consult. Informed patient and his they will receive a phone
call from the heart team on Tuesday to confirm time and location of arrival. Allowed for and answered questions at bedside.
--- NOTE | 2024-08-09 14:02 | CM ---
Addendum entered by Zainab Caceres RN 08/10/24 15:09:
Patient is outside the driving radius for CT Transitional RN. Patient may need a follow up phone call or VN. RAYA to follow
Original Note:
Chart reviewed. Met with the patient and his in [facility]. Reviewed preoperative and postoperative instructions and restrictions, along with showering instructions. Gave patient 2 soaps. Patient is independent of ADLS, lives with his in a 2
[address], 1st level set up, daughter and her family lives on the 2nd floor, [address], patient has a chair lift, rollator. Patient has ESRD with HD M/W/F at [facility] in [place]. Plan is for the patient to return home with CT Transitional RN.
[2024-08-09 14:59] LABS: ALT (SGPT) 12 U/L (0-50); AST (SGOT) 18 U/L (17-59); Albumin 4.8 g/dl (3.5-5.0); Alkaline Phosphatase 92 U/L (38-126); Blood Urea Nitrogen 40 mg/dl (9-20); Calcium 9.8 mg/dl (8.4-10.2); Carbon Dioxide 28 mmol/L (22-30); Chloride 102 mmol/L (98-107); Direct Bilirubin 0.6 mg/dl (0.0-0.4); Estimated Creatinine Clearance 11 ml/min; Glucose 81 mg/dl (70-99); Potassium 5.1 mmol/L (3.5-5.1); Sodium 142 mmol/L (135-145); Total Protein 7.2 g/dl (6.3-8.2); eGFR 12.27
[2024-08-10 09:46] LABS: Glycohemoglobin (HgbA1c) 4.9 % (4.0-5.6)
[2024-08-16] VITALS (23 sets, daily range): BP systolic 94–152; BP diastolic 48–97; BMI 26.8
[2024-08-16] MEDS: ANCEF 10 IV (10:00)
--- NOTE | 2024-08-16 10:35 | CM ---
Patient in OR today for planned TAVR.
Reviewed initial assessment. Patient is independent of ADLS, lives with his in a 2 [address], 1st level set up, daughter and her family lives on the 2nd floor, [address], patient has a chair lift, rollator. Patient has ESRD with HD M/W/F at [facility] in
[place].
Antic. DC plan is for home w/ VN versus follow up call from CT Transitional Care RN, based on needs.
Will follow.
[2024-08-16 11:00] LABS: ACT-LR - POC 266 Seconds (116-155)
--- NOTE | 2024-08-16 11:22 | W.CVOR.SURPR ---
CVOR Surgeon Immed Pre Op
-
I have examined this patient prior to performance of the scheduled procedure.
The patient's condition is unchanged from the time of the dictated/written History and
Physical and the patient is able to undergo the scheduled procedure.
--- NOTE | 2024-08-16 11:23 | W.IMMPOSTOP ---
Surgical Immed Post Op Note
-
[id number]
STRUCTURAL HEART PROCEDURE NOTE
Preoperative Dx:
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
Non-ischemic CM w/ LVEF 35-40%
Non-obstructive CAD
mild MR, mild TR, trace AI
AF (chronic coumadin)
Hx of L renal mass
ESRD on HD (LUE AVF)
Anemia
Cervical osteomyelitis w/ Hx of C5-C7 debridement
[place] w/ B/L hearing aids
Hx of MRSA
Hx of parietal CVA
Seizure disorder
IVON on CPAP
GERD
RLS
Postoperative Dx:
Same
Acute on chronic combined systolic/diastolic CHF w/ elevated LVEDP (28mmHg)
Procedures:
1) L CFV access w/ U/S and fluoroscopic guidance, seldinger technique, long 6Fr sheath placement
2) L LEASING ASSOCIATE access w/ tactile, U/S, and fluoroscopic guidance, seldinger technique, long 6Fr sheath placement
3) Placement of temporary RV pacing wire (required balloon-tip pacer given enlarged RA volume) - threshold testing
4) Placement of pigtail catheter in RCC w/ limited aortography & confirmation of coplanar valve deployment angles
5) R LEASING ASSOCIATE access w/ tactile, U/S, and fluoroscopic guidance, seldinger technique, 8Fr dilator placement
6) Perclose placement x 2 to R LEASING ASSOCIATE, 8Fr sheath placement
7) Placement of Diaz E-sheath via R LEASING ASSOCIATE (systemic heparinization)
8) Wire purchase across stenotic AV (AL-1, soft-tip straight wire, table J-wire, LVEDP assessment, extra-stiff wire)
9) R TF TAVR w/ placement of Diaz JUAN ANTONIO 3, 26mm +2
10) Completion aortography
11) Completion TTE (mean gradient 4mmHg, trace PVL)
12) Removal of valve delivery system/Diaz E-sheath w/ R LEASING ASSOCIATE mgmt w/ perclose sutures x 2; 8Fr angioseal; manual pressure
13) Completion R ileofemoral angiography
14) Removal of temporary pacing wire
15) Limited angiography of L LEASING ASSOCIATE
16) Removal of L LEASING ASSOCIATE 6Fr sheath w/ mgmt w/ 6Fr angioseal and manual pressure
17) Removal of L CFV 6Fr sheath; manual pressure (protamine)
Transfer Controller:
Dr. Maxwell Castrejon
Cardiac Surgeon:
Navdeep Zambrano M.D.
Anesthesia:
MAC & local to B/L groins
Complications:
None
Implants:
Diaz Lifesciences, 26mm JUAN ANTONIO 3 (+2); [id number]
Perclose x 2 and 8Fr angioseal to R LEASING ASSOCIATE
6Fr angioseal to L LEASING ASSOCIATE
Cath Data:
Start: 1030hrs, Deploy: 1103hrs, End: 1119hrs
FT: 12.8, mGy: 299.13, DAP: 30.5010, Contrast: 82
Post-TTE: mean gradient 4mmHg, trace PVL
Condition:
Stable/guarded to recovery
--- NOTE | 2024-08-16 11:45 | ITS.CL.PN ---
Title Clerk - Procedure Note
Procedure
Procedure Note:
TRANSCATHETER AORTIC VALVE REPLACEMENT REPORT
Date of Procedure: 08/16/2024
Referring: Dr. Bruno Castro MD
Indication: severe symptomatic aortic valve stenosis
Operators: Maxwell Castrejon MD, PhD (interventional cardiology); Dr. Navdeep Zambrano MD (CT surgery)
Anesthesia: conscious sedation provided by the anesthesia staff
PROCEDURE: transfemoral, transcatheter aortic valve replacement with an Diaz JUAN ANTONIO 3 Ultra 26 mm transcatheter aortic valve (+2 cc volume)
ACCESS:
1. 6F left femoral vein (closure: manual hemostasis) - Ultrasound was utilized for vascular access. The vessel was visualized under ultrasound and noted to be patent. An image of the vessel was stored permanently in the patient's medical record.
Under direct ultrasound guidance, vascular access was obtained using a modified Seldinger technique and a 6 Dutch sheath was placed.
2. 6F left common femoral artery (closure: Angioseal) - Ultrasound was utilized for vascular access. The vessel was visualized under ultrasound and noted to be patent. An image of the vessel was stored permanently in the patient's medical record.
Under direct ultrasound guidance, vascular access was obtained using a modified Seldinger technique and a 6 Dutch sheath was placed.
3. 14 F right common femoral artery (closure: Perclose x2, 8F Angioseal) - Ultrasound was utilized for vascular access. The vessel was visualized under ultrasound and noted to be patent. An image of the vessel was stored permanently in the patient's
medical record. Under direct ultrasound guidance, vascular access was obtained using a modified Seldinger technique and a 6 Dutch sheath was placed.
HEMODYNAMIC DATA
LVEDP 28 mmHg
PROCEDURE NARRATIVE:
The patient was prepped and draped in standard sterile fashion. Conscious sedation was provided by the anesthesia staff. 6F left femoral vein and left common femoral artery access was obtained with ultrasound guidance using micropuncture technique
with verification of appropriate arteriotomy location via hand injection angiography. A temporary venous pacing wire was advanced via the left femoral vein to the right ventricle under fluoroscopic guidance with appropriate capture verified. A 5F
pigtail catheter was advanced via the left common femoral artery and seated in the right coronary cusp. Angiography was performed to verify the co-planar angle.
8F right common femoral artery access was obtained with ultrasound guidance using micropuncture technique with verification of appropriate arteriotomy location via hand injection angiography. The arteriotomy was preclosed with two Perclose sutures
followed by replacement of the 8F sheath. Using an AL1 catheter, an Amplatz Extrastiff wire was placed in the descending thoracic aorta. The 8F sheath was removed and the 14 F Diaz E-sheath was inserted over the Extrastiff wire and into the
descending aorta. Heparin 5500 units was given. The AL1 catheter was re-advanced through the E-sheath to the level of the ascending aorta. The Extrastiff wire was exchanged for a soft tipped straight wire which was used to cross the aortic valve and
deposit the AL1 in the LV apex. A J-wire was used to exchange the AL1 for a pigtail catheter in the LV and LVEDP was measured. An Amplatz Extrastiff wire with curved proximal end was advanced through the pigtail catheter and seated in the LV apex.
ACT was checked and confirmed to be >300 seconds.
The valve was brought to the table with orientation and deployment contrast volume verified. The valve was advanced over the Extrastiff wire and into the descending aorta. The balloon was withdrawn, and the valve was mounted on the balloon. The
valve was advanced over the aortic arch and into the aortic valve annulus. The pusher device was withdrawn. Low volume aortography confirmed valve positioning. The valve was deployed during rapid ventricular pacing. The balloon was walked back to
the descending aorta while leaving the wire in place. The patient was resuscitated by anesthesia with recovery of adequate blood pressure. Telemetry demonstrating narrow complex rhythm with normal rate. Aortography demonstrated good valve
positioning, adequate coronary filling, and trace aortic valve insufficiency. Echocardiography confirmed trace aortic insufficiency. Mean valve gradient was 4 mmHg. The valve deployment system was removed.
The Diaz E sheath was removed, and hemostasis obtained with the two Perclose sutures plus an 8F Angioseal. Protamine 40 mg was given. Aortoiliac angiography demonstrated no evidence of iliofemoral dissection/perforation and good runoff below the
common femoral artery bilaterally. The pacemaker and the pigtail catheter were removed. The left femoral artery sheath was removed using a 6F Angioseal. The left femoral venous sheath was removed with manual pressure.
CONCLUSIONS
1. successful placement of a Diaz JUAN ANTONIO 3 Ultra 26 mm transcatheter aortic valve (+2 cc volume) via right transfemoral approach with no acute complications
2. acute on chronic systolic heart failure with elevated filling pressures (LVEDP = 28)
Copy to: Dr. Bruno Castro MD (production weigher); Dr. Romelia Zapata DO (PCP)
Signed: Maxwell Castrejon MD, PhD
--- NOTE | 2024-08-16 13:08 | W.CON.NEPH ---
Consultation
-
Date/Time Consultation Requested: 08/16/2024 12 PM
Date/Time Consultation Performed: 08/16/2024 1 PM
Requesting Provider: Dr. Arteaga
Performing Provider: Dr. Salcedo
Reason for Consultation: ESRD
Medical History
-
Chief Complaint: TAVR
History of Present Illness:
This is a 77-year-old gentleman who is well-known to us for his end-stage renal disease on hemodialysis Wednesdays at [facility]. He has chronic hypotension on midodrine therapy. He also has atrial fibrillation on Coumadin
therapy for anticoagulation. He has had cervical osteomyelitis with surgical procedures and now on suppressive doxycycline therapy. He also has severe aortic stenosis though this has been stable for him. He has had a workup as an outpatient and
was ultimately cleared for TAVR. This was performed today without complication. We are asked to assist with management of his ESRD
Past Medical History
1. End-stage renal disease.
2. Anemia of chronic kidney disease.
3. Left ankle and hip trauma.
4. Paroxysmal AFib.
5. Seizure disorder.
6. History of stroke.
7. History of left renal mass.
8. Restless leg syndrome.
9. Left radiocephalic AV fistula.
10.Cardiomyopathy
11.Chronic hypotension on midodrine support.
12.Valvular heart disease with associated severe
13.Previous cervical neck surgery with hardware placement, osteomyelitis
14. TAVR
Social History
Tobacco: Non-Smoker
Alcohol: None
Family History
Family History: Not Pertinent
Allergies / Home Medications
Allergy/AdvReac Type Severity Reaction Status Date / Time
No Known Allergies Allergy Verified 08/16/24 08:05
�Medication �Instructions �Recorded �Confirmed �Type
ascorbic acid (vitamin C) 250 mg 500 mg PO QPM Supplement 07/14/21 08/16/24 History
tablet
vit B complx, C-iron 8 mg-folic 1 tab PO DAILY Supplement ##0 07/14/21 08/16/24 History
acid 800 mcg-D3 1,000 unit-zinc
tablet (ProRenal)
lamotrigine 150 mg tablet 300 mg PO DAILY@1700,2300 Seizures 11/11/22 08/16/24 History
(Lamictal)
melatonin 3 mg tablet 3 mg PO HSPRN PRN sleep 11/11/22 08/16/24 History
atorvastatin 10 mg tablet 10 mg PO HS High Cholesterol 09/04/23 08/16/24 History
cholecalciferol (vitamin D3) 10 10 mcg PO DAILYPRN PRN winter only 09/04/23 08/16/24 History
mcg (400 unit) tablet
doxycycline monohydrate 100 mg 100 mg PO HS Infection 09/04/23 08/16/24 History
tablet
metoprolol succinate 25 mg 25 mg PO DAILY@1600 Blood Pressure 09/04/23 08/16/24 History
tablet,extended release 24 hr
pramipexole 0.5 mg tablet 0.5 mg PO HSPRN PRN restless legs 09/04/23 08/16/24 History
acetaminophen 500 mg tablet 1,000 mg (2 x 500 mg) PO Q6HPRN 09/08/23 08/16/24 Rx
(Tylenol Extra Strength) PRN mild to mod pain #60 tabs
apixaban 5 mg tablet (Eliquis) 5 mg PO BID 30 days #60 tabs 09/08/23 08/16/24 Rx
midodrine 5 mg tablet 5 mg PO TID@0800,1300,1800 30 days 09/08/23 08/16/24 Rx
#90 tabs
tenapanor 30 mg tablet (Xphozah) 30 mg PO BID Kidney Disease 09/08/23 08/16/24 History
Review of Systems
-
No chest pain or shortness of breath
All other systems: Negative unless noted
Physical Exam
Vital Signs
Vital Signs
Temp Pulse Resp BP Pulse Ox
97.4 F 46 20 103/56 92
08/16/24 12:47 08/16/24 12:34 08/16/24 12:47 08/16/24 12:34 08/16/24 12:47
Lab Results
WBC 5.4 10^3/uL (4.8-10.8) 08/09/24 12:21
RBC 3.15 10^6/uL (4.70-6.10) L 08/09/24 12:21
Hgb 10.8 g/dL (13.0-18.0) L 08/09/24 12:21
Hct 33.2 % (39.0-52.0) L 08/09/24 12:21
Plt Count 149 10^3/uL (130-400) 08/09/24 12:21
Sodium 142 mmol/L (135-145) 08/09/24 12:21
Potassium 5.1 mmol/L (3.5-5.1) 08/09/24 12:21
Chloride 102 mmol/L (98-107) 08/09/24 12:21
Carbon Dioxide 28 mmol/L (22-30) 08/09/24 12:21
BUN 40 mg/dl (9-20) H 08/09/24 12:21
Creatinine 4.6 mg/dL (0.7-1.3) H* 08/09/24 12:21
eGFR 12.27 08/09/24 12:21
Glucose 81 mg/dl (70-99) 08/09/24 12:21
Calcium 9.8 mg/dl (8.4-10.2) 08/09/24 12:21
Vjr-B-Alhxkaucmyf Pept > 56748 pg/ml 08/09/24 12:21
Albumin 4.8 g/dl (3.5-5.0) 08/09/24 12:21
Laboratory Tests
08/09/24
12:21
Hgb 10.8 L
Potassium 5.1
Physical Exam
Patient is awake alert oriented and in no distress. Mood and affect were pleasant, insight and judgment were good. Pupils are equal round and reactive to light, extraocular movements are intact, sclera were anicteric. Hearing was normal, ears and
nose are intact. Oropharynx was clear. Neck was supple with trachea midline and no thyromegaly. Heart was regular rate and rhythm without rubs. Lower extremities without edema. Lungs were clear to auscultation bilaterally and with normal
excursion. Abdomen was soft, nontender, with normal active bowel sounds, and no hepatosplenomegaly. Skin was without rash and with normal turgor. Left upper arm AV fistula with good thrill and bruit
Data Reviewed
-
Radiology: Image Personally Visualized and interpreted (Chest x-ray 08/09/2024 by reading no acute disease)
Medical Tests (Nuc Med, Echo etc): Image Personally Visualized and interpreted (EKG 08/16/2024 by reading a flutter left axis deviation incomplete left bundle branch block nonspecific ST-T wave abnormalities, prolonged QT) and Report Reviewed by me
(Echocardiogram 08/16/2024 ejection fraction 55% trace AR)
Labs: Labs Reviewed by me (Ordered)
Old Records: Reviewed
Assessment/Plan
-
Assessment:
ESRD MWF ([facility])
Hx C5 osteomyelitis on suppressive doxycycline
Hypotension (chronic midodrine)
Hyperphosphatemia
Chronic atrial fibrillation
Chronic HFpEF
Severe aortic stenosis, status post TAVR 08/16/2024
Moderate pulmonary hypertension
Peripheral artery disease status post left BKA
History of CVA
Sleep apnea
Anemia of chronic disease
Seizure disorder
Restless leg syndrome
Neuropathy
Chronic anticoagulation
Left proximal femoral fracture
Plan:
HD tomorrow, orders provided
Outpatient medications may be continued including midodrine as well as Xphozah if patient can bring this in from home
Discussed with patient and family
[2024-08-16] MEDS: ANCEF IV (14:01)
[2024-08-16 14:30] LABS: ACT-LR - POC > 397 Seconds (116-155)
[2024-08-16] MEDS: ANCEF 5 IV (15:44)
[2024-08-16] MEDS: ProAmatine PO ×2 (15:51→19:05)
[2024-08-16] MEDS: ProAmatine 5 MG PO (16:22)
--- NOTE | 2024-08-16 16:34 | PTCARENOTE ---
Pt received post TAVR at 1230. Pt awake, alert and oriented, drowsy but easily aroused. Pt on room air, sat 97%. Denies any pain or discomfort. Bilateral groin site dressings dry and intact, sites soft and non tender. Pt assisted oob to the chair at
1620.
[2024-08-16] MEDS: LAMICTAL 300 MG PO ×2 (17:01→22:49)
[2024-08-16] MEDS: VITAMIN C 500 MG PO (17:01)
[2024-08-16] MEDS: VIBRAMYCIN 100 MG PO (19:53)
--- NOTE | 2024-08-16 20:46 | PTCARENOTE ---
Pt oob in recliner chair with daughter at bedside. No c/o pain. B/L groin sites intact. neuro check unchanged. evening dose of Midodrine held since previous dose was given after 1600. b/p > 100 systolic
[2024-08-16] MEDS: LIPITOR 10 MG PO (22:49)
[2024-08-17] VITALS (25 sets, daily range): BP systolic 93–142; BP diastolic 52–87; BMI 26.4
--- NOTE | 2024-08-17 00:11 | PTCARENOTE ---
Pt assisted oob to bathroom. passed very large formed bm. While using bathroom pt's rhythm noted ; afib with bundle. Pt asympt. Tele strips showed to PA.
[2024-08-17 04:13] LABS: Hematocrit 31.7 % (39.0-52.0); Hemoglobin 10.3 g/dL (13.0-18.0); Mean Corp Hgb Conc. 32.5 g/dL (33.0-37.0); Mean Corpuscular Hgb 33.9 pg (27.0-31.0); Mean Corpuscular Volume 104.3 fL (80.0-94.0); Mean Platelet Volume 9.3 fL (7.4-10.4); Platelet Count 115 10^3/uL (130-400); Red Blood Cell Count 3.04 10^6/uL (4.70-6.10); Red Cell Dist. Width 15.5 % (11.5-14.5); White Blood Cell Count 5.4 10^3/uL (4.8-10.8)
[2024-08-17 04:48] LABS: Blood Urea Nitrogen 32 mg/dl (9-20); Calcium 9.3 mg/dl (8.4-10.2); Carbon Dioxide 27 mmol/L (22-30); Chloride 104 mmol/L (98-107); Estimated Creatinine Clearance 11 ml/min; Glucose 88 mg/dl (70-99); Potassium 4.3 mmol/L (3.5-5.1); Sodium 141 mmol/L (135-145); eGFR 11.37
--- NOTE | 2024-08-17 07:46 | W.PN.ANS.POP ---
Anesthesia Post Operative
- Anesthesia Post Op Note
Vital Signs Stable-See Nursing Note: Yes
Airway Patent: Yes
Adequate Pain Control: Yes
Change in Mental Status: No
Current Postoperative Nausea & Vomiting: No
Anesthesia Complications: No
General Anesthetic Recall: No
Unplanned Admission: No
Post Op Hydration Adequate: Yes
- -
Pt awake and alert. No anesthesia c/o at time of post op visit
[2024-08-17] MEDS: ProAmatine 5 MG PO ×2 (07:53→13:13)
--- NOTE | 2024-08-17 07:59 | W.PN.CT ---
Today's Communication / Plan
-
-pod #1
-no significant issues overnight
-chronic a-fib. While walking to the bathroom, had several runs of WCT- likely a-fib with rate-related BBB
-Eliquis and Toprol are to re-start today
-Echo today
-encourage IS, OOB
-possible d/c home with a monitor
Assessment / Plan
-
-Severe symptomatic - s/p R TF TAVR w/ placement of Diaz JUAN ANTONIO 3, 26mm +2 on 08/16/24, pod #1
-Post-TTE: mean gradient 4mmHg, trace PVL
-Non-ischemic CM w/ LVEF 35-40%
-Non-obstructive CAD
- ild MR, mild TR, trace AI
-AF (chronic coumadin)
-Hx of L renal mass
-ESRD on HD (LUE AVF)
-Anemia
-Cervical osteomyelitis w/ Hx of C5-C7 debridement
-[place] w/ B/L hearing aids
-Hx of MRSA
-Hx of parietal CVA
-Seizure disorder
-IVON on CPAP
-GERD
-RLS
Discussed patient care with: Nursing and Care Team
Subjective
-
Date of Service: August 17, 2024
Objective Data
-
Lab Results
08/17/24 03:35
PT 18.1 Sec (11.4-14.6) H 08/09/24 12:21
INR 1.44 08/09/24 12:21
APTT 40.4 Sec (23.4-35.0) H 08/09/24 12:21
Vital Signs
Vital Signs
Temp Pulse Resp BP Pulse Ox
98.6 F 88 18 137/66 97
08/17/24 07:14 08/17/24 07:53 08/17/24 07:14 08/17/24 07:53 08/17/24 07:14
CT Intake/Output/Weight
08/16/24 08/17/24 08/17/24
18:59 06:59 18:59
Intake Total 700 / 820 120 / 820
Balance 700 / 820 120 / 820
SaO2: 97
Physical Exam
-
General: Awake and AOx3
Cardiovascular: Irregular rate & rhythm, No Murmurs and No Rub
Respiratory: Decreased Breath Sounds
Incision: Other (groins are cdi, soft, nontender, no hematoma b/l)
Extremities: Other (no edema on RLE, BKA of LLE)
Abdomen: soft, nontender, nondistended
Data Reviewed
-
Lab Results: Results Reviewed
Medications: Active Meds Reviewed
Chest X-Ray: Report Reviewed and Image Reviewed
ECG: Report Reviewed and Image Reviewed
--- NOTE | 2024-08-17 09:12 | W.PN.NEPH.HD ---
Assessment
-
Patient seen on dialysis
Systolic blood pressure stable at 114 at current Danielle
Some atrial fibrillation and rhythm disturbances overnight
For repeat echo today, possible discharge on heart monitor today
Progress Note - Hemodialysis
-
Date of Service: August 17, 2024
Duration: 30 minutes and 3 hours
Potassium Bath: 3
Calcium Bath: 2.5
Opti-Dialyzer: 160
Ultrafiltration: Other (2kg)
Blood Flow: 400
Dialysate Flow: 600
Heparin: none
EPO: 6000
[2024-08-17 09:32] LABS: Hematocrit 32.6 % (39.0-52.0); Hemoglobin 10.7 g/dL (13.0-18.0); Mean Corp Hgb Conc. 32.8 g/dL (33.0-37.0); Mean Corpuscular Hgb 34.3 pg (27.0-31.0); Mean Corpuscular Volume 104.5 fL (80.0-94.0); Mean Platelet Volume 9.6 fL (7.4-10.4); Platelet Count 126 10^3/uL (130-400); Red Blood Cell Count 3.12 10^6/uL (4.70-6.10); Red Cell Dist. Width 15.8 % (11.5-14.5); White Blood Cell Count 5.4 10^3/uL (4.8-10.8)
[2024-08-17] MEDS: RETACRIT 6000 UNITS IV (09:49)
--- NOTE | 2024-08-17 10:16 | PTCARENOTE ---
Patient resting in bed, having HD presently. Bilateral groin sites are dry and intact. Patient complaining of restless leg and asking for prn mirapex ordered for HS. TT to CT surgery DON.
--- NOTE | 2024-08-17 10:23 | CM ---
Chart reviewed. Patient lying in bed with HD at bedside. Patient is independent of ADLS, lives with his in a 2 [address], 1st floor set up, [address], ambulates with a rollator and also has a chair lift. Patient's daughter and family live on the 2nd
[address]. CT Transitional RN will do a follow up phone call. Plan is for the patient to return home. CM to follow
[2024-08-17] MEDS: MIRAPEX, GENERIC 0.5 MG PO (10:34)
[2024-08-17] MEDS: VIBRAMYCIN 100 MG PO (12:04)
[2024-08-17] MEDS: FLUSH (NSS) 1 FLUSH IV (12:04)
[2024-08-17] MEDS: NEPHROCAP 1 CAPSULE PO (12:04)
--- NOTE | 2024-08-17 14:54 | W.PN.CD ---
Today's Communication / Plan
-
restart AC
discharge home
Impression / Plan
-
Patient seen and examined. 78 year old man with NICM, Afib on eliquis, severe symptomatic aortic stenosis POD1 s/p transfemoral TAVR with Lilly 3 Ultra 26 mm +2 cc, final gradient 4 mmHg. He did well overnight and received dialysis this morning.
Had some Afib with RVR with rate related QRS widening while walking to bathroom overnight.
TTE today with mean gradient ~12 (my read), DVI 0.8, well seated valve.
Restart AC for Afib.
Plan for discharge home with standard post-TAVR follow up and radiographer cardiac catheterization.
Physical Exam
Vital Signs/Labs
Vital Signs
Temp Pulse Resp BP Pulse Ox
36.4 C 72 20 134/66 97
08/17/24 12:25 08/17/24 13:15 08/17/24 12:25 08/17/24 12:27 08/17/24 12:25
08/16/24 08/17/24 08/18/24
06:59 06:59 06:59
Actual Weight 71.9 kg
08/17/24 09:12
08/17/24 03:35
PT 18.1 Sec (11.4-14.6) H 08/09/24 12:21
INR 1.44 08/09/24 12:21
APTT 40.4 Sec (23.4-35.0) H 08/09/24 12:21
08/09/24
12:21
Czc-H-Xyjmakfwmga Pept > 48540
Physical Exam
Constitutional: No acute distress
Cardiovascular: Rhythm & rate is regular
Respiratory: Respiratory effort normal
Neuro/Psych: AO x 3
Data Reviewed
-
Date of Service: August 17, 2024
Medical Decision Making: Reviewed Test Results
Labs: Labs Reviewed by me
--- NOTE | 2024-08-17 15:26 | W.DCSUMMARY ---
Addendum entered and electronically signed by CRISSY Lema 08/17/24 16:18:
Patient was provided a heart monitor on discharge for further outpatient assessment of incomplete left bundle branch block.
Original Note:
Discharge Summary
Discharge Data
Date of Admission: 08/16/24
Date of Discharge: 08/17/24
-
Pending Results: No
Hospital Course
Primary care physician: Romelia Zapata
Outpatient homemaking rehabilitation consultant: Brenda Jacobs
Inpatient consultants: [facility]
Procedures:
1. TAVR
Primary Diagnosis:
1. Severe aortic stenosis
Secondary Diagnoses:
1. Non-ischemic CM w/ LVEF 35-40%
2. Atrial Fibrillation (chronic coumadin)
3. Hx of L renal mass
4. ESRD on HD (LUE AVF)
5. Chronic Anemia due to ESRD
6. Cervical osteomyelitis w/ Hx of C5-C7 debridement
7. Hx L BKA w/prosthesis
8. Hx of MRSA
9. Hx of parietal CVA
10. Seizure disorder
11. IVON on CPAP
12. GERD
13. Restless leg syndrome
14. Secondary hyperparathyroidism
HPI: 78-year-old male was electively admitted on 08/16/2024 for TAVR due to severe aortic stenosis.
Hospital course: Patient was taken the operating room and underwent a right transfemoral TAVR #26mm Diaz JUAN ANTONIO [address] D[address] Reji Arteaga and Navdeep Zambrano. Postprocedure TTE reported AV mean gradient 4mmHg, with trace PVL. Postprocedure ECG
reported atrial flutter with incomplete left bundle branch block. Patient required no vasoactive pressor medications and bilateral groin sites remained stable. Morning chest x-ray reported mild vascular congestion and patient underwent planned
dialysis treatment on 08/17/2024 with 2 kg ultrafiltrated. Ambulated hallways without difficulty and is deemed stable for discharge to home. Patient will resume Eliquis this evening.
Home medication changes:
none
Discharge Plan
-
Patient Disposition: Home (Routine Discharge)
Discharge Diagnosis/Procedures: TF TAVR
Condition: Fair
Diet: Low Fat, Low Cholesterol and 2 Gram Sodium
Activity: As tolerated
Driving Restrictions: No driving for 1 week
Bathing Restrictions: OK to Shower
Others Tests: 30 day follow up echo: 09/17/2024 @ 3:00 at [facility]
You will need lifelong preprocedural/predental antibiotic prophylaxis for any future dental procedures
Other Services: Cardiac Rehab
Wound Care: NO lotions, powders, or creams to puncture sites
Specialty Instructions: Weigh Daily- Call MD for wt gain/loss 3 lbs overnight/5 lbs in 1 week
Referrals:
Cheryl Cramer CRNP [Specified Professional Personl, Cardiology] - 10/01/24 2:20 pm
Romelia Zapata NP [Family Provider, Internal Medicine]
Prescriptions:
Continued
ascorbic acid (vitamin C) 250 MG tablet
500 mg PO QPM
ProRenal 8 mg iron-800 mcg-1,000 unit Tablet
1 tab PO DAILY Qty: 0
lamotrigine [Lamictal] 150 mg tablet
300 mg PO DAILY@1700,2300
melatonin 3 mg tablet
3 mg PO HSPRN PRN (Reason: sleep)
doxycycline monohydrate 100 mg tablet
100 mg PO HS
pramipexole 0.5 mg tablet
0.5 mg PO HSPRN PRN (Reason: restless legs)
metoprolol succinate 25 mg tablet extended release 24 hr
25 mg PO DAILY@1600
cholecalciferol (vitamin D3) 10 mcg (400 unit) Tablet
10 mcg PO DAILYPRN PRN (Reason: winter only)
atorvastatin 10 mg tablet
10 mg PO HS
acetaminophen [Tylenol Extra Strength] 500 mg Tablet
1,000 mg PO Q6HPRN PRN (Reason: mild to mod pain) Qty: 60 0RF
Xphozah 30 mg Tablet
30 mg PO BID
Rx Instructions:
administer immediately before last meal of day
midodrine 5 mg Tablet
5 mg PO TID@0800,1300,1800 30 Days Qty: 90 0RF
Eliquis 5 mg Tablet
5 mg PO BID 30 Days Qty: 60 0RF
Discharge Orders:
Discharge Patient (As Directed); Ordered 08/17/24
Ordered By: Adrinaa Lewis
Care Plan Goals
Care Plan Goals:
Problem: Readiness for enhanced knowledge related to diagnosis and treatment plan
Goal: Understand your diagnosis and treatment plan needs, including medications if applicable.
Instructions: Know your diagnosis, underlying causes and treatment plan options, including medications if applicable. Consult with your health care team to learn about your diagnosis and treatment plan, including medications if applicable.
Discharge Date and Time
Print Language: [place]ET[place]
[2024-08-17] MEDS: LAMICTAL 300 MG PO (16:44)
[2024-08-17] MEDS: TOPROL XL 25 MG PO (16:44)
--- NOTE | 2024-08-17 17:24 | PTCARENOTE ---
Patient tolerated HD without any issues. Echo done and read and patient is cleared for discharge home. Reviewed discharge instructions and follow up appointments with the patient and his and they state their understanding. Rhythm star monitor
applied to the patient and patient discharged home with his .
== END 2024-08-17 17:26 | disposition home or self-care (01) | DRG 266 ==
LOC: IVU 07:44
PROVIDERS: Specialist; ADMITTING PHYSICIAN Thoracic Surgery (Cardiothoracic Vascular Surgery); CONSULT PHYSICIAN Specialist; FAMILY PHYSICIAN Internal Medicine; OTHER PHYSICIAN Student in an Organized Health Care Education/Training Program
PROC: 02RF38Z Replacement of Aortic Valve with Zooplastic Tissue, Percutaneous Approach (ICD-10-PCS; 2024-08-16)
PROC: 5A1D70Z Performance of Urinary Filtration, Intermittent, Less than 6 Hours Per Day (ICD-10-PCS; 2024-08-17)
DX: I08.3 Combined rheumatic disorders of mitral, aortic and tricuspid valves (principal); I50.43 Acute on chronic combined systolic (congestive) and diastolic (congestive) heart failure; N18.6 End stage renal disease; I42.8 Other cardiomyopathies; I48.20 Chronic atrial fibrillation, unspecified; M46.22 Osteomyelitis of vertebra, cervical region; N25.81 Secondary hyperparathyroidism of renal origin; I48.92 Unspecified atrial flutter; I25.10 Atherosclerotic heart disease of native coronary artery without angina pectoris; I44.7 Left bundle-branch block, unspecified; G40.909 Epilepsy, unspecified, not intractable, without status epilepticus; G47.33 Obstructive sleep apnea (adult) (pediatric); K21.9 Gastro-esophageal reflux disease without esophagitis; G25.81 Restless legs syndrome; I95.89 Other hypotension; D63.1 Anemia in chronic kidney disease; E83.39 Other disorders of phosphorus metabolism; I27.20 Pulmonary hypertension, unspecified; I73.9 Peripheral vascular disease, unspecified; N28.89 Other specified disorders of kidney and ureter; G62.9 Polyneuropathy, unspecified; H91.93 Unspecified hearing loss, bilateral; Z99.2 Dependence on renal dialysis; Z89.512 Acquired absence of left leg below knee; Z97.4 Presence of external hearing-aid; Z86.14 Personal history of Methicillin resistant Staphylococcus aureus infection; Z86.73 Personal history of transient ischemic attack (TIA), and cerebral infarction without residual deficits; Z79.01 Long term (current) use of anticoagulants
CPT/HCPCS: 93308; 33361; 36415; 71045; 71046; 80048; 80053; 81003; 81015; 82248; 83036; 83880; 85025; 85027; 85347; 85610; 85730; 86850; 86900; 86901; 87070; 87086; 93005; 93321; 93325; C1760; C1769; C1894; P9047; Q5106; Q9967

== ENCOUNTER → 2024-08-20 15:36 | Outpatient (REF) | payer OTHER, SELFPAY | LOC: RAD 15:36 | PROVIDERS: ATTENDING PHYSICIAN Internal Medicine Cardiovascular Disease; FAMILY PHYSICIAN Internal Medicine | DX: R05.9 Cough, unspecified (principal) | CPT/HCPCS: 71046 ==

== ENCOUNTER → 2024-08-21 13:56 | Outpatient (REF) | payer OTHER, SELFPAY | LOC: RCS 13:56 | PROVIDERS: ATTENDING PHYSICIAN Internal Medicine Cardiovascular Disease; FAMILY PHYSICIAN Internal Medicine | DX: R06.02 Shortness of breath (principal); Z95.2 Presence of prosthetic heart valve | CPT/HCPCS: 93308 ==

== ENCOUNTER 2024-08-27 07:36 | Emergency (ER) | payer OTHER, SELFPAY ==
[2024-08-27 07:41] VITALS: BP 111/69
[2024-08-27 07:51] VITALS: BMI 23.5
[2024-08-27] MEDS: DUONEB 3 ML INH ×2 (09:18→11:35)
[2024-08-27 09:23] VITALS: BP 129/64
[2024-08-27 09:34] LABS: % Basophils 1.6 % (0-2); % Eosinophils 15.2 % (0-6); % Immature Granulocytes 0.4 % (0-0.5); % Lymphocytes 18.2 % (20.5-51.1); % Monocytes 7.9 % (1.7-9.3); % Neutrophils 56.7 % (42.2-75.2); Absolute Basophils 0.1 10^3/uL (0-0.2); Absolute Eosinophils 0.9 10^3/uL (0-0.7); Absolute Monocytes 0.5 10^3/uL (0.1-0.6); Absolute Neutrophils 3.2 10^3/uL (1.4-6.5); Hematocrit 30.9 % (39.0-52.0); Hemoglobin 10.4 g/dL (13.0-18.0); Mean Corp Hgb Conc. 33.7 g/dL (33.0-37.0); Mean Corpuscular Hgb 34.3 pg (27.0-31.0); Mean Platelet Volume 9.4 fL (7.4-10.4); Nucleated Red Blood Cells % 0 % (-); Platelet Count 111 10^3/uL (130-400); Red Blood Cell Count 3.03 10^6/uL (4.70-6.10); Red Cell Dist. Width 16.1 % (11.5-14.5); White Blood Cell Count 5.7 10^3/uL (4.8-10.8)
[2024-08-27 10:07] VITALS: BP 132/85
[2024-08-27 10:11] LABS: ALT (SGPT) < 10 U/L (0-50); AST (SGOT) 19 U/L (17-59); Albumin 4.2 g/dl (3.5-5.0); Alkaline Phosphatase 93 U/L (38-126); Blood Urea Nitrogen 35 mg/dl (9-20); Calcium 9.1 mg/dl (8.4-10.2); Carbon Dioxide 27 mmol/L (22-30); Chloride 100 mmol/L (98-107); Estimated Creatinine Clearance 10 ml/min; Glucose 86 mg/dl (70-99); Sodium 138 mmol/L (135-145); Total Bilirubin 2.1 mg/dl (0.2-1.3); Total Protein 6.2 g/dl (6.3-8.2); eGFR 8.74
[2024-08-27 11:00] VITALS: BP 144/81
[2024-08-27] MEDS: DECADRON 10 MG IV (11:36)
[2024-08-27 12:00] VITALS: BP 138/86
--- NOTE | 2024-08-27 12:20 | ED.GENMED ---
History of Present Illness
General
Chief Complaint: Esophageal Problem
Source: patient
Time Seen by Provider: 08/27/24 08:07
History of Present Illness
History of Present Illness:
Note:
CHIEF COMPLAINT(S)
Persistent cough
HISTORY OF PRESENT ILLNESS
The patient is a 78-year-old male with a significant past medical history of a transcatheter aortic valve replacement (TAVR) and a left enpyk-uzl-rnax amputation, who presents with a persistent cough that began approximately two months ago. The
patient describes the cough as productive in the past, but notes a recent change overnight, where the cough seemed less productive and 'deeper.' He suspects the possibility of having swallowed or inhaled a piece of candy wrapper, but this is
uncertain. The cough notably worsened following a candy ingestion last night, with associated difficulty in expectorating phlegm. The patient has been managing the cough with xlws-qsc-thiezwe guaifenesin (Mucinex) and an albuterol inhaler with some
symptomatic relief. The patient denies recent changes in his respiratory baseline other than the worsening cough. He has a history of smoking 50 years prior but denies any recent tobacco use. The patient has been receiving care from his family
doctor but has not seen a loan servicing specialist.
ADDITIONAL HISTORY OBTAINED FROM SOURCES OTHER THAN THE PATIENT
According to the spouse, the patient noticed the candy wrapper issue this morning, and she confirmed the absence of the inner wrapper on the candy. She also states that the patients cough frequency has increased since the TAVR procedure.
EXTERNAL RECORDS REVIEWED
Based on prior records, a recent chest X-ray and echocardiogram following the TAVR revealed no acute abnormalities, and the TAVR remains well-positioned. Previous clinical evaluations have indicated clear lungs on imaging but noted wheezing, which
improved with Mucinex.
CHRONIC MEDICAL CONDITIONS SIGNIFICANTLY AFFECTING CARE
Chronic conditions affecting care: History of TAVR, undergoing dialysis for kidney disease, and left zdoxi-dni-clca amputation.
SOCIAL DETERMINANTS AFFECTING HEALTH
Patient reports smoking cessation 50 years ago. However, ongoing management of dialysis due to his financial and medical condition may pose a challenge.
REVIEW OF SYSTEMS
- Respiratory: Persistent cough, recent change to deeper cough, history of wheezing.
- Cardiovascular: History of TAVR; no chest pain reported.
- Musculoskeletal: Left cmozc-yel-tiek amputation.
- General: No recent fever or night sweats reported.
- Hematologic: Dialysis-dependent.
PHYSICAL EXAM
- General: Awake, alert, and oriented.
- Cardiovascular: Heart rhythm regular with a 4/6 systolic ejection murmur.
- Respiratory: Wheezing and rhonchi present bilaterally.
- Musculoskeletal: Left zwycg-llj-gybq amputation.
- Extremities: Trace edema in right lower extremity.
- Vascular: Left upper extremity arteriovenous graft with normal thrill.
- Neurological: Non-focal gross motor exam.
- Neck: Limited range of motion, held in flexion.
PLAN
- Perform a chest X-ray to evaluate for any possible foreign body and assess lung hui.
- Review recent echocardiogram results for cardiac assessment.
- Administer a nebulized bronchodilator treatment to relieve wheezing and open airway passages.
- Monitor laboratory values pertinent to dialysis and fluid status. Adjust management as necessary.
- Consider pulmonary consultation if symptoms persist or in case of abnormal findings from the x-ray or lab work.
DIFFERENTIAL DIAGNOSIS
The Differential Diagnosis includes, in no particular order and is not limited to:
1. Chronic obstructive pulmonary disease (COPD) exacerbation
2. Aspiration pneumonia
3. Reactive airway disease
4. Pulmonary edema
5. Post-nasal drip syndrome
6. Gastroesophageal reflux disease (GERD)
7. Acute bronchitis
8. Interstitial lung disease
9. Left ventricular heart failure
10. Pulmonary embolism
CARE-UPDATE
08/27/24 - 11:19
Patient continues to experience sweating and remains febrile with a temperature of 100�F. Patient reports minimal relief from previous breathing treatment. Upon auscultation, patient demonstrates improved air movement. Plan to administer one
additional breathing treatment. Suspected bronchitis; will initiate a course of antibiotics and steroids. Patient instructed to use inhaler every four hours for today and tomorrow. Current medication regimen includes doxycycline for long-term MRSA
management. Awaiting X-ray results for further assessment.
Disposition:
SUMMARY OF ENCOUNTER
The patient presented with a persistent cough, which has been ongoing for approximately two months and worsened following the recent candy ingestion. The patient described his cough as deeper and less productive. A suspicion of acute bronchitis was
made due to the presence of yellow sputum, prompting the initiation of antibiotics and steroids. The patient was previously taking albuterol, which was recommended to continue every four hours. Additional history regarding the cough was obtained
from the spouse, dismissing the likelihood of foreign body inhalation and considering mucus plugging as a potential cause.
DISPOSITION
The patient will be discharged with outpatient follow-up, continuing the care with his usual doctor.
EMERGENCY TREATMENTS ADMINISTERED
Nebulized bronchodilator treatment was administered in the emergency department, providing minimal relief. A course of antibiotics and steroids was initiated to manage suspected bronchitis.
REASSESSMENT
The patients breathing showed improved air movement after treatment in the emergency department.
PLAN
Discharge with continuation of nebulized albuterol every four hours, antibiotics, and steroids. Follow-up with the patients outpatient doctor for ongoing management.
MEDICATION RECONCILIATION
Prescribed antibiotics and steroids for suspected bronchitis. Continued use of albuterol inhaler every four hours as needed.
MEDICAL DECISION MAKING
1. Number & Complexity of Problems: Chronic conditions affecting care include a history of transcatheter aortic valve replacement (TAVR) and dialysis-dependent kidney disease. The differential diagnosis considered included acute bronchitis and
potential mucus plugging.
2. Data Reviewed: Additional history obtained from the spouse. Past discharge summary from 2012 for TAVR was reviewed to understand chronicity and past hospitalizations.
3. Risk: Outpatient management was deemed appropriate based on the stability of symptoms, the patients understanding of medication use, and reliable follow-up.
PATHOLOGIES TO CONSIDER
- Pulmonary embolism
- Aspiration pneumonia
Diagnosis
Acute bronchitis
Past History
Past History
ED Past Medical History: Arrthythmia (Atrial fib), CHF, CVA, HTN, Hypercholesterolemia, Renal failure (Dialysis T-Th- S), Seizures and Other (Difficulty with balance, Neuropathy, Paresthesia arms and legs, Sleep apnea, Diverticulosis Cellulitis,
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
ED Past Surgical History: Cardiac (Cardioversion X 2), Orthopedic (C2-C3 surgery, Left leg BKA), Tonsilectomy and Other (Cataracts extracted in 2011, ocular muscle detachment 2016, nasal polypectomy, deviated septum repair 1987, thyroid biopsy)
Patient has exhibited threatening behavior?: No
PSI?: No
Social History
Tobacco: Former smoker
Alcohol: None
Drug: None
Personal:
Living: with family
Employment: Retired
Family History
Family History: Other (reviewed and noncontributory)
Phy Exam
Physical Exam
Physical Exam:
.
Course
Orders/Labs/Results
Orders:
Orders
08/27/24 08:59
Ipratropium/Albuterol Sulfate [Duoneb] 3 ml INH R NOW STA
08/27/24 09:00
Electrocardiogram (*1) Stat
Reason for Study: Other
Other Reason for Exam: sob
EKG- Treatment ONCE
CR Chest - 2 Views Urgent
Comment:
Reason For Exam: shortness of breath
08/27/24 09:20
Complete Blood Count/With Diff Urgent
Comprehensive Metabolic Panel Urgent
08/27/24 11:19
Ipratropium/Albuterol Sulfate [Duoneb] 3 ml INH R NOW STA
08/27/24 11:30
Dexamethasone Sod Phosphate [Decadron] 10 mg IV NOW STA
08/27/24 12:21
Azithromycin [Zithromax] 500 mg PO NOW STA
Abnormal Lab Results
08/27/24
09:20
RBC 3.03 L 10^6/uL
(4.70-6.10)
Hgb 10.4 L g/dL
(13.0-18.0)
Hct 30.9 L %
(39.0-52.0)
MCV 102.0 H fL
(80.0-94.0)
MCH 34.3 H pg
(27.0-31.0)
RDW 16.1 H %
(11.5-14.5)
Plt Count 111 L 10^3/uL
(130-400)
Absolute Lymphs (auto) 1.0 L 10^3/uL
(1.2-3.4)
Absolute Eos (auto) 0.9 H 10^3/uL
(0-0.7)
Lymphocytes % 18.2 L %
(20.5-51.1)
Eosinophils % 15.2 H %
(0-6)
BUN 35 H mg/dl
(9-20)
Creatinine 6.1 H* mg/dL
(0.7-1.3)
Total Bilirubin 2.1 H mg/dl
(0.2-1.3)
Total Protein 6.2 L g/dl
(6.3-8.2)
08/27/24 09:20
08/27/24 09:20
Vital Signs
Initial and Last Documented VS:
Initial Vital Signs
Temp Pulse Resp BP Pulse Ox
98.7 F 103 16 111/69 95
08/27/24 07:41 08/27/24 07:41 08/27/24 07:41 08/27/24 07:41 08/27/24 07:41
Last Documented Vital Signs
Temp Pulse Resp BP Pulse Ox
98.7 F 103 16 138/86 94
08/27/24 07:41 08/27/24 07:41 08/27/24 07:41 08/27/24 12:00 08/27/24 12:21
*Pulse Oximetry
SaO2: 94
Patient hypoxic: no
*Critical Care Note
Total Time (30-74mins, 75-104mins- exclusive of procedures): Not Applicable
ED Attending Note
-
Portions of this chart may have been created with voice recognition software.� Occasional wrong word or��sound alike� substitutions may have occurred due to the inherent limitations of voice recognition software.
Discharge Plan
Departure
Patient Disposition: Home (Routine Discharge)
Date of Disposition: 08/27/24
Time of Disposition: 12:22
Patient with high blood pressure during this ER visit?: No
Discharge Problem:
Cough
Instructions: Acute bronchitis in adults
Prescriptions:
New
prednisone 10 mg Tablet
See Rx Instructions .ROUTE .COMPLEX Qty: 30 0RF
Rx Instructions:
Take By Mouth:
40 mg daily x3 days, 30 mg daily x3 days,
20 mg daily x3 days, 10 mg daily x3 days.
azithromycin [Zithromax] 250 mg tablet
250 mg PO DAILY Qty: 4 0RF
No Action
ProRenal 8 mg iron-800 mcg-1,000 unit Tablet
1 tab PO HS Qty: 0
lamotrigine [Lamictal] 150 mg tablet
300 mg PO BID
melatonin 3 mg tablet
3 mg PO HSPRN PRN (Reason: sleep)
pramipexole 0.5 mg tablet
0.5 mg PO HSPRN PRN (Reason: restless legs)
metoprolol succinate 25 mg tablet extended release 24 hr
25 mg PO QPM
atorvastatin 10 mg tablet
10 mg PO HS
Xphozah 30 mg Tablet
30 mg PO BID
Eliquis 5 mg Tablet
5 mg PO BID 30 Days Qty: 60 0RF
doxycycline hyclate 100 mg Capsule
100 mg PO HS
Patient Comments:
08/27/2024, filled on 08/16/2024 for 90-day supply.
ascorbic acid (vitamin C) [Vitamin C] 500 mg Tablet
500 mg PO QPM
docusate sodium [Stool Softener] 100 mg Capsule
100 mg PO QPM
albuterol sulfate 90 mcg/actuation Hfa Aerosol Inhaler
2 puff INHALATION R Q4HPRN PRN (Reason: sob/wheezing)
sevelamer carbonate 800 mg Tablet
1,600 mg PO MEALS
midodrine 5 mg tablet
5 mg PO TID
Referrals:
Romelia Zapata NP [Family Provider, Internal Medicine]
Activity Restrictions/Additional Instructions:
Please use your albuterol inhaler every 4 hours for the next 48 hours (2 puffs). Return immediately for fevers, coughing up blood, shortness of breath or any other concerns. Please see your doctor in the next 3 days for follow-up and reevaluation.
Interventions
Interventions:
*Risk Screen - Suicide Last Done: 08/27/24 07:51
*General Assessment Last Done: 08/27/24 07:51
*Neglect/Abuse Screening Last Done: 08/27/24 12:12
*ED- Fall Risk Assessment Last Done: 08/27/24 07:51
*ED COVID-19 Vaccine History Last Done: 08/27/24 07:51
*Nursing Disposition Last Done: 08/27/24 12:56
ZE-Kpxlho-Ltjujbpptw Assessment Last Done: 08/27/24 07:51
Discharge Date and Time
Print Language: KOSOVAN
[2024-08-27] MEDS: ZITHROMAX 500 MG PO (12:51)
== END 2024-08-27 12:56 | disposition home or self-care (01) ==
LOC: EMR 07:36
PROVIDERS: EMERGENCY PHYSICIAN Emergency Medicine; FAMILY PHYSICIAN Internal Medicine
DX: R05.3 Chronic cough (principal); E78.00 Pure hypercholesterolemia, unspecified; G25.81 Restless legs syndrome; G47.30 Sleep apnea, unspecified; I11.0 Hypertensive heart disease with heart failure; I50.9 Heart failure, unspecified; I48.91 Unspecified atrial fibrillation; Z86.73 Personal history of transient ischemic attack (TIA), and cerebral infarction without residual deficits; Z87.891 Personal history of nicotine dependence; Z89.512 Acquired absence of left leg below knee; Z95.2 Presence of prosthetic heart valve; Z99.2 Dependence on renal dialysis
CPT/HCPCS: 99284; 94640; 96374; 71046; 80053; 85025; 93005

== ENCOUNTER → 2024-09-18 14:51 | Outpatient (REF) | payer OTHER, SELFPAY | LOC: RCS 14:51 | PROVIDERS: ATTENDING PHYSICIAN Student in an Organized Health Care Education/Training Program; FAMILY PHYSICIAN Internal Medicine | DX: Z95.2 Presence of prosthetic heart valve (principal) | CPT/HCPCS: 93306 ==

== ENCOUNTER 2024-10-04 09:16 | Outpatient (RCR) | payer OTHER, SELFPAY | END 2024-10-04 23:59 | disposition home or self-care (01) | LOC: CRHB 09:16 | PROVIDERS: ATTENDING PHYSICIAN Internal Medicine Cardiovascular Disease | DX: Z95.2 Presence of prosthetic heart valve (principal) | CPT/HCPCS: G0422; G0423 ==

== ENCOUNTER 2024-11-01 09:30 | Outpatient (RCR) | payer OTHER, SELFPAY | END 2024-11-01 23:59 | disposition home or self-care (01) | LOC: CRHB 09:30 | PROVIDERS: ATTENDING PHYSICIAN Internal Medicine Cardiovascular Disease | DX: Z95.2 Presence of prosthetic heart valve (principal) | CPT/HCPCS: G0422; G0423 ==

== ENCOUNTER → 2024-11-22 15:11 | Outpatient (REF) | payer OTHER, SELFPAY | LOC: RAD 15:11 | PROVIDERS: ATTENDING PHYSICIAN Registered Nurse; FAMILY PHYSICIAN Internal Medicine | DX: M25.551 Pain in right hip (principal) | CPT/HCPCS: 73502 ==

== ENCOUNTER 2024-12-04 14:01 | Outpatient (RCR) | payer OTHER, SELFPAY | END 2024-12-04 23:59 | disposition home or self-care (01) | LOC: CRHB 14:01 | PROVIDERS: ATTENDING PHYSICIAN Internal Medicine Cardiovascular Disease | DX: Z95.2 Presence of prosthetic heart valve (principal) | CPT/HCPCS: G0422; G0423 ==

== ENCOUNTER → 2024-12-30 08:26 | Outpatient (REF) | payer OTHER, SELFPAY | LOC: PAVMRI 08:26 | PROVIDERS: ATTENDING PHYSICIAN Orthopaedic Surgery; FAMILY PHYSICIAN Internal Medicine | DX: M25.551 Pain in right hip (principal) | CPT/HCPCS: 73721 ==

== ENCOUNTER 2025-01-03 11:20 | Outpatient (RCR) | payer OTHER, SELFPAY | END 2025-01-03 23:59 | disposition home or self-care (01) | LOC: CRHB 11:20 | PROVIDERS: ATTENDING PHYSICIAN Internal Medicine Cardiovascular Disease | DX: Z95.2 Presence of prosthetic heart valve (principal) | CPT/HCPCS: G0422; G0423 ==

== ENCOUNTER 2025-01-24 10:45 | Outpatient (RCR) | payer OTHER, SELFPAY | END 2025-01-24 23:59 | disposition home or self-care (01) | LOC: CRHB 10:45 | PROVIDERS: ATTENDING PHYSICIAN Internal Medicine Cardiovascular Disease | DX: Z95.2 Presence of prosthetic heart valve (principal) | CPT/HCPCS: G0422; G0423 ==

== ENCOUNTER → 2025-02-21 09:42 | Outpatient (REF) | payer OTHER, SELFPAY | LOC: RAD 09:42 | PROVIDERS: ATTENDING PHYSICIAN Registered Nurse; FAMILY PHYSICIAN Internal Medicine | DX: I65.23 Occlusion and stenosis of bilateral carotid arteries (principal); I73.9 Peripheral vascular disease, unspecified | CPT/HCPCS: 93880; 93922; 93925 ==